=== PATIENT | male | born 1940 | race Caucasian/White ===

== ENCOUNTER → 2020-04-19 | Outpatient (CLI) | payer MEDICARE | LOC: EDSEX 14:00 → CARD 14:00 | PROVIDERS: ATTEND Internal Medicine Cardiovascular Disease | DX: I35.1 Nonrheumatic aortic (valve) insufficiency (principal); I25.10 Atherosclerotic heart disease of native coronary artery without angina pectoris; I25.5 Ischemic cardiomyopathy; I10 Essential (primary) hypertension; Z86.79 Personal history of other diseases of the circulatory system; Z87.891 Personal history of nicotine dependence | CPT/HCPCS: 93306 ==

== ENCOUNTER → 2020-07-09 | Outpatient (CLI) | payer MEDICARE ==
[~2020-07-09] MED LIST: RT-ALBUTEROL SULF 2.5 MG/3 ML PRE-MIX VIAL INH ONE
== END ==
LOC: RT 13:00
PROVIDERS: ATTEND Nurse Practitioner Family
DX: J44.9 Chronic obstructive pulmonary disease, unspecified (principal)
CPT/HCPCS: 94060; 94726; 94729

== ENCOUNTER 2022-09-16 15:22 | Observation (INO) | payer MEDICARE ==
[~2022-09-16] VITALS: Ht 183 cm; Wt 84.6 kg
[2022-09-16] MEDS ORDERED: RT-ALBUTEROL/IPRATROPIUM 3 ML (DUONEB) VIAL INH ONE (16:00)
[2022-09-16 16:12] LABS: POTASSIUM 4.2 MMOL/L (3.6-5.0)
[2022-09-16 16:13] LABS: PROTHROMBIN TIME PATIENT 13.2 SEC (12.2-14.7)
[2022-09-16 16:14] LABS: TOTAL PROTEIN 7.3 GM/DL (6.4-8.2)
[2022-09-16 16:16] LABS: BILIRUBIN,TOTAL 0.4 MG/DL (0.1-1.0)
[2022-09-16 16:17] LABS: BASOPHILS # (AUTO) 0.1 10^3/uL (0.0-0.1); BASOPHILS % (AUTO) 1 % (0-10); EOSINOPHILS # (AUTO) 0.2 10^3/uL (0.0-0.3); EOSINOPHILS % (AUTO) 3 % (0-10); HEMATOCRIT 32 % (40-54); HEMOGLOBIN 9.6 g/dL (13.3-17.7); LYMPHOCYTES # (AUTO) 1.7 X 10^3 (1.0-4.0); LYMPHOCYTES % (AUTO) 24 % (12-44); MEAN CORPUSCULAR HEMOGLOBIN 25 pg (25-34); MEAN CORPUSCULAR HGB CONC 30 g/dL (32-36); MEAN CORPUSCULAR VOLUME 83 fL (80-99); MEAN PLATELET VOLUME 10.5 fL (9.0-12.2); MONOCYTES # (AUTO) 0.6 X 10^3 (0.0-1.0); MONOCYTES % (AUTO) 8 % (0-12); NEUTROPHILS # (AUTO) 4.3 X 10^3 (1.8-7.8); NEUTROPHILS % (AUTO) 64 % (42-75); PLATELET COUNT 379 10^3/uL (130-400); WHITE BLOOD COUNT 6.8 10^3/uL (4.3-11.0)
[2022-09-16 16:18] LABS: CREATININE SERUM 1.08 MG/DL (0.60-1.30)
[2022-09-16 16:21] LABS: MAGNESIUM 2.1 MG/DL (1.6-2.4)
--- NOTE | 2022-09-16 16:29 | ED Respiratory ---
General Chief Complaint: Respiratory Problems Stated Complaint: EKG CHANGES - SOA - BILAT LEG SWELLING Nursing Triage Note: PT TO RM 6 BY WITH COMPLAINT OF SOA ON EXERTION, LOWER EXTREMITY SWELLING. PT WAS SENT OVER BY [facility] FOR SOA, SWELLING, AND EKG CHANGES. Source: patient, family Exam Limitations: no limitations History of Present Illness Date Seen by Provider: Sep 16, 2022 Time Seen by Provider: 15:40 Initial Comments 81-year-old male presents with daughter, sent from the [facility] clinic in [place] with reports of abnormal EKG, shortness of breath, and bilateral lower extremity edema. Patient states that he scheduled an appointment at the clinic because of his bilateral lower leg edema and shortness of air. Daughter states that on he fell and broke his shoulder and has been sitting around [employer]. States the swelling in his lower extremities has increased since the fall, but states they have become more swollen and painful over the last week. States that today swelling is actually improved. Complains of shortness of air with walking short distance, denies shortness of air while sitting. Denies chest pain, denies fever/chills, reports headache but states this is normal for him denies any changes in his headaches. Denies abdominal pain, nausea/vomiting. He has a history of COPD, CHF, open heart surgery, multiple stents. He currently takes carvedilol, tamsulosin, potassium, paroxetine, finasteride, Lasix 40 mg, aspirin 81 mg, Culturelle, cetirizine, pravastatin, Spiriva, Symbicort, albuterol inhaler. Allergies and Home Medications Allergies Coded Allergies: No Known Drug Allergies (Unverified , 07/09/20) Patient Home Medication List Home Medication List Reviewed: Yes Review of Systems Review of Systems Constitutional: see HPI Past Xapjfex-Opgxau-Rmwpuq Hx Patient Social History Tobacco Use?: No Smoking Status: Former Smoker Use of E-Cig and/or Vaping dev: No Substance use?: No Alcohol Use?: No Pt feels they are or have been: No Immunizations Up To Date Influenza Vaccine Up-to-Date: Yes; Up-to-Date First/Initial COVID19 Vaccinat: 2020 Second COVID19 Vaccination Fernie: 2020 Third COVID19 Vaccination Date: 2020 Physical Exam Vital Signs - First Documented 09/16/22 15:27 Pulse 75 Resp 14 B/P (MAP) 113/66 (82) Pulse Ox 98 O2 Delivery Room Air Capillary Refill : Less Than 3 Seconds Height: '" Weight: lbs. oz. kg; 23.00 BMI Method: General Appearance: WD/WN, no apparent distress Neck: supple, normal inspection Respiratory: no respiratory distress, no accessory muscle use, decreased breath sounds, wheezing (Expiratory wheezing bilateral lower lobes) Cardiovascular: regular rate, rhythm Extremities: normal range of motion, pedal edema, swelling (non-pitting edema) Neurologic/Psychiatric: alert, normal mood/affect, oriented x 3 Skin: normal color, warm/dry Progress/Results/Core Measures Suspected Sepsis SIRS Temperature: Pulse: 75 Respiratory Rate: 14 Laboratory Tests 09/16/22 15:35: White Blood Count 6.8 Blood Pressure 113 /66 Mean: 82 Laboratory Tests 09/16/22 15:35: Creatinine 1.08, INR Comment 1.0, Platelet Count 379, Total Bilirubin 0.4 Results/Orders Lab Results Laboratory Tests Test 09/16/22 15:35 09/16/22 18:39 Range/Units White Blood Count 6.8 4.3-11.0 10^3/uL Red Blood Count 3.87 L 4.30-5.52 10^6/uL Hemoglobin 9.6 L 13.3-17.7 g/dL Hematocrit 32 L 40-54 % Mean Corpuscular Volume 83 80-99 fL Mean Corpuscular Hemoglobin 25 25-34 pg Mean Corpuscular Hemoglobin Concent 30 L 32-36 g/dL Red Cell Distribution Width 16.6 H 10.0-14.5 % Platelet Count 379 130-400 10^3/uL Mean Platelet Volume 10.5 9.0-12.2 fL Immature Granulocyte % (Auto) 0 % Neutrophils (%) (Auto) 64 42-75 % Lymphocytes (%) (Auto) 24 12-44 % Monocytes (%) (Auto) 8 0-12 % Eosinophils (%) (Auto) 3 0-10 % Basophils (%) (Auto) 1 0-10 % Neutrophils # (Auto) 4.3 1.8-7.8 X 10^3 Lymphocytes # (Auto) 1.7 1.0-4.0 X 10^3 Monocytes # (Auto) 0.6 0.0-1.0 X 10^3 Eosinophils # (Auto) 0.2 0.0-0.3 10^3/uL Basophils # (Auto) 0.1 0.0-0.1 10^3/uL Immature Granulocyte # (Auto) 0.0 0.0-0.1 10^3/uL Prothrombin Time 13.2 12.2-14.7 SEC INR Comment 1.0 0.8-1.4 Activated Partial Thromboplast Time 29 24-35 SEC D-Dimer 2.34 H 0.00-0.49 UG/ML Sodium Level 133 L 135-145 MMOL/L Potassium Level 4.2 3.6-5.0 MMOL/L Chloride Level 99 98-107 MMOL/L Carbon Dioxide Level 22 21-32 MMOL/L Anion Gap 12 5-14 MMOL/L Blood Urea Nitrogen 20 H 7-18 MG/DL Creatinine 1.08 0.60-1.30 MG/DL Estimat Glomerular Filtration Rate 69 BUN/Creatinine Ratio 19 Glucose Level 98 70-105 MG/DL Calcium Level 9.0 8.5-10.1 MG/DL Corrected Calcium 9.0 8.5-10.1 MG/DL Magnesium Level 2.1 1.6-2.4 MG/DL Total Bilirubin 0.4 0.1-1.0 MG/DL Aspartate Amino Transf (AST/SGOT) 18 5-34 U/L Alanine Aminotransferase (ALT/SGPT) 15 0-55 U/L Alkaline Phosphatase 136 40-136 U/L Myoglobin 70.5 10.0-92.0 NG/ML Troponin I 0.046 H 0.032 H <0.028 NG/ML B-Type Natriuretic Peptide 50.3 <100.0 PG/ML Total Protein 7.3 6.4-8.2 GM/DL Albumin 4.0 3.2-4.5 GM/DL My Orders Orders - LISA KIRK APRN Ekg Tracing (09/16/22 15:37) Cbc With Automated Diff (09/16/22 15:59) Magnesium (09/16/22 15:59) Chest 1 View, Ap/Pa Only (09/16/22 15:59) Comprehensive Metabolic Panel (09/16/22 15:59) Myoglobin Serum (09/16/22 15:59) Protime With Inr (09/16/22 15:59) Partial Thromboplastin Time (09/16/22 15:59) Monitor-Rhythm Ecg Trace Only (09/16/22 15:59) Ed Iv/Invasive Line Start (09/16/22 15:59) Bnp Kelly (09/16/22 15:59) Fibrin Degradation Products (09/16/22 15:59) Troponin I Summers (09/16/22 15:59) Albuterol/Ipra Inhalation Soln (Duoneb I (09/16/22 16:00) Svn Small Volume Nebulizer (09/16/22 15:59) Ct Angio Chest W (R/O Pe) (09/16/22 16:57) Iohexol Injection (Omnipaque 350 Mg/Ml 1 (09/16/22 17:15) Received Contrast (Hold Metformin- Contr (09/16/22 17:15) Ns (Ivpb) (Sodium Chloride 0.9% Ivpb Bag (09/16/22 17:15) Methylprednisolone Sod Succ (Solu-Medrol (09/16/22 17:45) Troponin I Kelly (09/16/22 17:43) Ekg Tracing (09/16/22 18:30) Fentanyl Inj (Sublimaze Injection) (09/16/22 19:00) Ed Admission (Communication) (09/16/22 19:47) Medications Given in ED Current Medications Medications Dose Ordered Sig/Sandra Route Start Time Stop Time Status Last Admin Dose Admin Albuterol/ Ipratropium 3 ml ONCE ONCE INH 09/16/22 16:00 09/16/22 16:01 DC 09/16/22 16:32 3 ML Fentanyl Citrate 50 mcg ONCE ONCE IVP 09/16/22 19:00 09/16/22 19:01 DC 09/16/22 19:02 50 MCG Iohexol 100 ml ONCE ONCE IV 09/16/22 17:15 09/16/22 17:16 DC 09/16/22 17:02 72 ML Methylprednisolone Sodium Succinate 125 mg ONCE ONCE IVP 09/16/22 17:45 09/16/22 17:46 DC 09/16/22 17:56 125 MG Sodium Chloride 100 ml ONCE ONCE IV 09/16/22 17:15 09/16/22 17:16 DC 09/16/22 17:02 80 ML Vital Signs/I&O 09/16/22 15:27 Pulse 75 Resp 14 B/P (MAP) 113/66 (82) Pulse Ox 98 O2 Delivery Room Air Capillary Refill : Less Than 3 Seconds Blood Pressure Mean: 82 Progress Note #1: Time: 16:00 Progress Note Patient seen and evaluated, resting comfortably on the bed, no acute distress, well-appearing. Based on exam and symptoms, differential diagnosis includes CHF exacerbation, COPD exacerbation, PE, pneumonia, WA, pleural effusion. Work-up initiated for shortness of air, CBC, CMP, BNP, troponin, magnesium level, chest x-ray, EKG. Progress Note #2: Time: 17:[address] angio chest ordered and completed for elevated D-dimer, negative for PE. Chest x-ray and labs reviewed. CBC revealed normocytic anemia, hemoglobin 9.6, hematocrit 32. Patient and daughter deny history of known anemia. Denies coffee-ground emesis, denies black tarry stools. CMP grossly normal, sodium slightly low at 133, BUN slightly elevated at 20. Coags normal. Troponin elevated at 0.046, will repeat a 3-hour troponin at 1830. BNP 50. chest x-ray revealed no cardiopulmonary process. Discussed results with patient and daughter, informed that we would repeat the troponin 3 hours after the first draw. Informed patient that the shortness of breath may be due to his COPD, and informed him that we would give him a dose of steroids here and if he is discharged will be sent home on prednisone. Inform patient that we will call his balance staff inspector after the second troponin. Progress Note #3: Time: 18:10 Progress Note Fecal occult blood completed, negative. Progress Note #4: Time: 19:13 Progress Note Repeat troponin decreased but still elevated. Consulted with Dr. Rodríguez who wants him admitted. Discussed admission with patient, patient and family agreeable to admission. ECG Initial ECG Impression Date: Sep 16, 2022 Initial ECG Impression Time: 15:40 Initial ECG Rhythm: Normal Sinus Initial ECG Intervals: Normal Initial ECG Impression: Normal Initial ECG Comparisson: No Previous ECG Available Comment Insignificant Q waves noted in II, III, and aVF, no ST elevation or T wave inversion in these leads. T wave inversion in lead I, aVL. EKG : EKG Time: 18:41 Rate: 83 Rhythm: Normal Sinus Intervals: Normal ECG Comparisson: Changed ECG Impression: Nonspecific Changes Comment Q waves in II and aVF have decreased, lead III continues to have similar Q waves. No ST elevation or T wave inversion in these leads. Diagnostic Imaging Diagonstic Imaging: Xray Plain Films/CT/US/NM/MRI: chest Comments [facility] [place], [place] NAME: RITA COCHRAN [facility] REC#: [id number] PT STATUS: REG ER : 1940 PHYSICIAN: LISA KIRK APRN ADMIT DATE: 09/16/22/ER Draft Date of Exam:09/16/22 CHEST 1 VIEW, AP/PA ONLY INDICATION: Dyspnea and chest pain. AP view of the chest is obtained. COMPARISON: None FINDINGS: Surgical findings are seen in the mediastinum with presumed coronary artery stent. Lungs are clear. There is no pneumothorax, consolidation or pleural fluid. Mild degenerative findings are present in the left shoulder. Shoulder is incompletely evaluated on this exam. IMPRESSION: No definite acute abnormalities identified. There is probable degenerative change and mild irregularity in the proximal left humerus. Correlation to possible pain at this site would be of use. Dictated on workstation # [id number] Dict: 09/16/22 1642 Trans: 09/16/22 1644 [facility] [id number] Interpreted by: VADIM MAE MD Electronically signed by: Departure Communication (Admissions) Time/Spoke to Admitting Phy: 19:[address] Castro for admission. Time/Spoke to Consulting Phy: 19:[address] Rodríguez. Impression Primary Impression: Elevated troponin Additional Impressions: COPD with acute exacerbation CHF (congestive heart failure) Disposition: ADMITTED INPATIENT Condition: Stable Admissions Decision to Admit Reason: Admit from ER (General) Decision to Admit/Date: Sep 16, 2022 Time/Decision to Admit Time: 19:33 Departure-Patient Inst. Referrals: [facility] ([place]) Primary Care Physician LISA KIRK APRN Sep 16, 2022 16:29
--- NOTE | 2022-09-16 16:45 | Diagnostic Imaging Report ---
INDICATION: Dyspnea and chest pain. AP view of the chest is obtained. COMPARISON: None FINDINGS: Surgical findings are seen in the mediastinum with presumed coronary artery stent. Lungs are clear. There is no pneumothorax, consolidation or pleural fluid. Mild degenerative findings are present in the left shoulder. Shoulder is incompletely evaluated on this exam. IMPRESSION: No definite acute abnormalities identified. There is probable degenerative change and mild irregularity in the proximal left humerus. Correlation to possible pain at this site would be of use. Dictated by: Dictated on workstation # [id number]
[2022-09-16] MEDS ORDERED: HOLD METFORMIN - RECEIVED CONTRAST 20 ML VIAL IV SCH (17:15)
[2022-09-16] MEDS ORDERED: NS 100 ML (IVPB) BAG IV ONE (17:15)
[2022-09-16] MEDS ORDERED: IOHEXOL 350 MG/ML 100 ML (OMNIPAQUE 350) VIAL IV ONE (17:15)
--- NOTE | 2022-09-16 17:27 | Diagnostic Imaging Report ---
INDICATION: Shortness of breath on exertion, lower extremity swelling. TECHNIQUE: CTA chest obtained with IV contrast bolus and axial slices and MIP reconstructions. Dose-reduction protocol was used. COMPARISON: There is no prior study for comparison. FINDINGS: The pulmonary parenchymal vessels are well opacified with no CT evidence of pulmonary emboli. The thoracic aorta shows no sign of dissection or aneurysm. There is mild aortic plaquing. Great vessel origins are patent and without stenosis. There is no mediastinal or hilar adenopathy. A prominent hiatal hernia is noted. There are no enlarged axillary nodes or chest wall lesions. There is no pleural or pericardial fluid. Patient has had previous sternotomy. Visualized portions of the upper abdomen were unremarkable. Lung windows demonstrated some biapical scarring. There is no consolidation. There is some right basilar scarring. IMPRESSION: No CT evidence of pulmonary emboli or acute aortic pathology. Evidence of previous sternotomy. No pleural fluid. There are some areas of scarring in both apices and in the right lung base, but no ant consolidation. Dictated by: Dictated on workstation # [id number]
[2022-09-16] MEDS ORDERED: methylPREDNISolone 125 MG (Solu-MEDROL) VIAL IVP ONE (17:45)
[2022-09-16] MEDS ORDERED: fentaNYL INJ 100 MCG/2 ML AMP IVP ONE (19:00)
[2022-09-16 20:15] VITALS: BP 135/60
[2022-09-16] MEDS ORDERED: PATIENT MAY USE OWN MEDS, ALL MC SCH (20:30)
[2022-09-16 20:42] VITALS: BP 113/66
[2022-09-16] MEDS ORDERED: RT-ALBUTEROL/IPRATROPIUM 3 ML (DUONEB) VIAL INH PRN (21:00)
[2022-09-16] MEDS: RT-ALBUTEROL/IPRATROPIUM 3 ML (DUONEB) VIAL INH SCH (21:39)
[2022-09-16] MEDS ORDERED: CATHETER FLUSH 10 ML SYR IVP PRN (22:00)
[2022-09-16] MEDS ORDERED: ONDANSETRON 4 MG/2 ML (SDV) Z0FRAN IV PRN (22:00)
[2022-09-16 23:24] VITALS: BP 123/55
[2022-09-16] MEDS: fentaNYL INJ 100 MCG/2 ML AMP IV PRN (23:29)
[2022-09-16] MEDS: CATHETER FLUSH 10 ML SYR IVP SCH (23:29)
[2022-09-17 04:28] VITALS: BP 122/64
[2022-09-17] MEDS: CATHETER FLUSH 10 ML SYR IVP SCH ×3 (04:39→20:30)
[2022-09-17] MEDS: fentaNYL INJ 100 MCG/2 ML AMP IV PRN ×2 (04:46→09:31)
[2022-09-17 05:52] LABS: BASOPHILS % (AUTO) 0 % (0-10); EOSINOPHILS % (AUTO) 0 % (0-10); HEMATOCRIT 32 % (40-54); HEMOGLOBIN 9.7 g/dL (13.3-17.7); LYMPHOCYTES # (AUTO) 0.7 10^3/uL (1.0-4.0); LYMPHOCYTES % (AUTO) 16 % (12-44); MEAN CORPUSCULAR HEMOGLOBIN 25 pg (25-34); MEAN CORPUSCULAR HGB CONC 31 g/dL (32-36); MEAN CORPUSCULAR VOLUME 81 fL (80-99); MEAN PLATELET VOLUME 10.7 fL (9.0-12.2); MONOCYTES % (AUTO) 1 % (0-12); NEUTROPHILS # (AUTO) 3.5 10^3/uL (1.8-7.8); NEUTROPHILS % (AUTO) 83 % (42-75); PLATELET COUNT 395 10^3/uL (130-400); WHITE BLOOD COUNT 4.3 10^3/uL (4.3-11.0)
[2022-09-17 06:02] LABS: CREATININE SERUM 1.01 MG/DL (0.60-1.30)
[2022-09-17 07:53] VITALS: BP 129/70
[2022-09-17] MEDS: RT-ALBUTEROL/IPRATROPIUM 3 ML (DUONEB) VIAL INH SCH ×2 (10:19→21:58)
--- NOTE | 2022-09-17 10:59 | Consultation-Cardiology ---
HPI-Cardiology Cardiology Consultation: Date of Consultation 09/17/22 Time Seen by a Provider: 10:30 Date of Admission 09-16-22 Attending Physician Selina,[facility] Physician Admitting Physician Admitting Physician: Janny Castro MD Attending Physician: Janny Csatro MD Consulting Physician Pari Rodríguez MD HPI: Chief Complaint: Progressive dyspnea Mr. Bliss is an 81 yr old male admitted to [facility] from the ED with c/o increasing LEACH. He reports he went to [facility] in [place] yesterday for a "lung test". He states he was told d/t his SOB he needed to come to the ED. He reports he fell a week ago, non-syncopal fall, and fractured his left shoulder which is in a sling. He states he has poor balance, which is chronic. He reports intermittent bilat LE swelling which is least in the morning and worse at the end of the day and with elevation. He reports he has COPD and has been seeing the "lung doctor" at [facility]. He denies any c/o palpitations. He reports no dyspnea this morning, but has only been up to shower. Review of Systems-Cardiology Review of Systems Constitutional: No chills, No fever; lightheadedness Eyes: No vision change Ears/Nose/Throat: No epistaxis, No recent hearing loss Respiratory: As described under HPI Cardiovascular: As described under HPI Gastrointestinal: No constipation, No diarrhea, No nausea, No vomiting Genitourinary: No dysuria, No hematuria Musculoskeletal: As describe under HPI Skin: No rash on exposed areas, No ulcerations on exposed areas Psychiatric/Neurological: No anxiety, No depression, No seizure, No focal weakness, No syncope Hematologic: No bleeding abnormalities RDA-Shurle-Filpwn Hx Patient Social History Smoking Status: Former Smoker Have you traveled recently?: No Alcohol Use?: No Pt feels they are or have been: No Tobacco type used: Cigarettes Immunizations Up To Date Date of Influenza Vaccine: May 30, 2022 Past Medical History PMH As described under Assessment. Family Medical History Family Medical History: No reported family h/o CAD. Allergies and Home Medications Allergies Coded Allergies: No Known Drug Allergies (Unverified , 07/09/20) Patient Home Medication List Acetaminophen (Tylenol Extra Strength) 500 Mg Tablet, 1,000 MG PO Q8H PRN for PAIN-MILD (1-4), (Reported) Entered as Reported by: DEE DEE LEE on 09/17/221602 Last Action: Reviewed Albuterol Sulfate (Ventolin Hfa) 1 Puff Puff, 2 PUFF INH Q4H PRN for SHORTNESS OF BREATH, (Reported) Entered as Reported by: DEE DEE LEE on 09/17/221602 Last Action: Reviewed Aspirin (Aspirin EC) 81 Mg Tablet.dr, 81 MG PO DAILY, (Reported) Entered as Reported by: DEE DEE LEE on 09/17/221602 Last Action: Reviewed Budesonide/Formoterol Fumarate (Symbicort 160-4.5 Mcg Inhaler) 160 Mcg-4.5 Mcg/Actuation Hfa.aer.ad, 2 PUFF IH DAILY, (Reported) Entered as Reported by: DEE DEE LEE on 09/17/221602 Last Action: Reviewed Carvedilol (Carvedilol) 3.125 Mg Tablet, 3.125 MG PO BID, (Reported) Entered as Reported by: DEE DEE LEE on 09/17/221602 Last Action: Reviewed Cetirizine HCl (Cetirizine HCl) 10 Mg Tablet, 10 MG PO 1700, (Reported) Entered as Reported by: DEE DEE LEE on 09/17/221602 Last Action: Reviewed Finasteride (Finasteride) 5 Mg Tablet, 5 MG PO DAILY, (Reported) Entered as Reported by: DEE DEE LEE on 09/17/221602 Last Action: Reviewed Furosemide (Furosemide) 40 Mg Tablet, 40 MG PO DAILY, (Reported) Entered as Reported by: DEE DEE LEE on 09/17/221602 Last Action: Reviewed Hydrocodone/Acetaminophen (Hydrocodone-Acetamin 5-325 mg) 5 Mg-325 Mg Tablet, 1 EA PO Q6H PRN for PAIN-MODERATE (5-7), (Reported) Entered as Reported by: DEE DEE LEE on 09/17/221603 Last Action: Reviewed Lactobacillus Rhamnosus GG (Culturelle) 10 Billion Cell Capsule, 1 EACH PO DAILY, (Reported) Entered as Reported by: DEE DEE LEE on 09/17/221602 Last Action: Reviewed Magnesium Hydroxide (Milk of Magnesia) 400 Mg/5 Ml Oral.susp, 30 ML PO BID PRN for CONSTIPATION-7TH LINE, (Reported) Entered as Reported by: EDE DEE LEE on 09/17/221602 Last Action: Reviewed Pantoprazole Sodium (Pantoprazole Sodium) 40 Mg Tablet.dr, 40 MG PO DAILY, (Reported) Entered as Reported by: DEE DEE LEE on 09/17/221602 Last Action: Reviewed Paroxetine HCl (Paroxetine HCl) 10 Mg Tablet, 10 MG PO DAILY, (Reported) Entered as Reported by: DEE DEE LEE on 09/17/221602 Last Action: Reviewed Potassium Chloride (Klor-Con 10) 10 Meq Tablet.er, 10 MEQ PO DAILY, (Reported) Entered as Reported by: DEE DEE LEE on 09/17/221602 Last Action: Reviewed Pravastatin Sodium (Pravastatin Sodium) 40 Mg Tablet, 40 MG PO 1700, (Reported) Entered as Reported by: DEE DEE LEE on 09/17/221602 Last Action: Reviewed Tamsulosin HCl (Flomax) 0.4 Mg Cap, 0.8 MG PO DAILY, (Reported) Entered as Reported by: DEE DEE LEE on 09/17/221602 Last Action: Reviewed Tiotropium [place] (Spiriva) 18 Mcg Aerp, 1 PUFF IH DAILY, (Reported) Entered as Reported by: DEE DEE LEE on 09/17/221602 Last Action: Reviewed Physical Exam-Cardiology Physical Exam Vital Signs/I&O 09/17/22 09/17/22 09/17/22 09/17/22 07:00 07:53 08:00 10:19 Temp 36.8 Pulse 99 99 Resp 18 B/P (MAP) 129/70 (89) Pulse Ox 95 92 O2 Delivery Room Air Room Air Room Air 09/17/22 09/17/22 09/17/22 11:42 12:45 15:09 Temp 36.6 36.9 Pulse 93 104 96 Resp 18 18 B/P (MAP) 130/63 (85) 126/66 (86) Pulse Ox 98 96 O2 Delivery Room Air Room Air 09/17/22 00:00 Intake Total 250 ml Balance 250 ml Capillary Refill : Less Than 3 Seconds Constitutional: AAO x 3, well-developed, well-nourished HEENT: PERRL, hearing is well preserved, oral hygience is good Neck: No carotid bruit; carotid pulses are 2 + bilaterally Respiratory: No accessory muscle use, No respiratory distress; chest expansion is symmetric, chest is bilaterally symmetric, rhonchi (scattered) Cardiovascular: regular rate-rhythm; No JVD; S1 and S2 Gastrointestinal: No tender; soft, round, audible bowel sounds Extremities: no lower extremity edema bilateral Neurologic/Psychiatric: grossly intact (moves all extremities; sling to left arm - not manipulated d/t recent fracture) Skin: No rash on exposed areas, No ulcerations on exposed areas Data Review Labs Laboratory Tests 09/16/22 18:39: Troponin I 0.032H 09/17/22 00:33: Troponin I 0.051H 09/17/22 05:09: Troponin I 0.041H, White Blood Count 4.3, Red Blood Count 3.88L, Hemoglobin 9.7L , Hematocrit 32L, Mean Corpuscular Volume 81, Mean Corpuscular Hemoglobin 25, Mean Corpuscular Hemoglobin Concent 31L, Red Cell Distribution Width 16.5H, Platelet Count 395, Mean Platelet Volume 10.7, Immature Granulocyte % (Auto) 1, Neutrophils (%) (Auto) 83H, Lymphocytes (%) (Auto) 16, Monocytes (%) (Auto) 1, Eosinophils (%) (Auto) 0, Basophils (%) (Auto) 0, Neutrophils # (Auto) 3.5, Lymphocytes # (Auto) 0.7L, Monocytes # (Auto) 0.0, Eosinophils # (Auto) 0.0, Basophils # (Auto) 0.0, Immature Granulocyte # (Auto) 0.0, Sodium Level 134L, Potassium Level 4.0, Chloride Level 102, Carbon Dioxide Level 20L, Anion Gap 12, Blood Urea Nitrogen 22H, Creatinine 1.01, Estimat Glomerular Filtration Rate 75, BUN/Creatinine Ratio 22, Glucose Level 159H, Calcium Level 9.0 Radiology NAME: RITA BLISS [facility] REC#: [id number] PT STATUS: REG ER : 1940 PHYSICIAN: LISA KIRK APRN ADMIT DATE: 09/16/22/ER Signed Date of Exam:09/16/22 CHEST 1 VIEW, AP/PA ONLY INDICATION: Dyspnea and chest pain. AP view of the chest is obtained. COMPARISON: None FINDINGS: Surgical findings are seen in the mediastinum with presumed coronary artery stent. Lungs are clear. There is no pneumothorax, consolidation or pleural fluid. Mild degenerative findings are present in the left shoulder. Shoulder is incompletely evaluated on this exam. IMPRESSION: No definite acute abnormalities identified. There is probable degenerative change and mild irregularity in the proximal left humerus. Correlation to possible pain at this site would be of use. Dictated by: Dictated on workstation # [id number] Dict: 09/16/22 1642 Trans: 09/16/221727 CVB [id number] Interpreted by: VADIM MAE MD Electronically signed by: VADIM MAE MD 09/16/221727 NAME: RITA BLISS [facility] REC#: [id number] PT STATUS: REG ER : 1940 PHYSICIAN: LISA KIRK APRN ADMIT DATE: 09/16/22/ER Signed Date of Exam:09/16/22 CT ANGIO CHEST W (R/O PE) INDICATION: Shortness of breath on exertion, lower extremity swelling. TECHNIQUE: CTA chest obtained with IV contrast bolus and axial slices and MIP reconstructions. Dose-reduction protocol was used. COMPARISON: There is no prior study for comparison. FINDINGS: The pulmonary parenchymal vessels are well opacified with no CT evidence of pulmonary emboli. The thoracic aorta shows no sign of dissection or aneurysm. There is mild aortic plaquing. Great vessel origins are patent and without stenosis. There is no mediastinal or hilar adenopathy. A prominent hiatal hernia is noted. There are no enlarged axillary nodes or chest wall lesions. There is no pleural or pericardial fluid. Patient has had previous sternotomy. Visualized portions of the upper abdomen were unremarkable. Lung windows demonstrated some biapical scarring. There is no consolidation. There is some right basilar scarring. IMPRESSION: No CT evidence of pulmonary emboli or acute aortic pathology. Evidence of previous sternotomy. No pleural fluid. There are some areas of scarring in both apices and in the right lung base, but no ant consolidation. 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 ECG of 04/11/20: NSR, prior anteroseptal NC Discussion and Recomendations Progressive dyspnea - possibly secondary to acute on chronic exacerbation of COPD No clinical evidence of CHF - Echocardiogram today HTN - resume home medications Minimially elevated troponin - likely Type 2 NC secondary to transient hypoxia - no c/o CP Monitor lab Replace electrolytes as indicated He wishes to go home has he is the primary care-health sanitarian to his We would like to thank medical services for this consult Further recs will be based on his hospital course JOHN EDGE Sep 17, 2022 10:59
[2022-09-17] MEDS ORDERED: ASPIRIN 81 MG CHEW (CHILDREN'S ASA) PO NR (11:20)
[2022-09-17 11:42] VITALS: BP 130/63
[2022-09-17] MEDS ORDERED: REGADENOSON 0.4 MG/5 ML SYR (LEXISCAN) IV ONE (13:00)
[2022-09-17 15:09] VITALS: BP 126/66
--- NOTE | 2022-09-17 15:18 | Consultation-Cardiology ---
HPI-Cardiology Cardiology Consultation: Date of Consultation 09/17/22 Time Seen by a Provider: 12:40 Date of Admission Attending Physician No,Local Physician Admitting Physician Admitting Physician: Janny Castro MD Attending Physician: Janny Castro MD Consulting Physician DIANNA HWANG MD, MA, FACP, FACC, [facility], CCDS HPI: Chief Complaint: Progressive dyspnea Mr. Bliss is an 81 yr old male admitted to [facility] from the ED with c/o increasing LEACH. He reports he went to [facility] in [place] yesterday for a "lung test". He states he was told d/t his SOB he needed to come to the ED. He reports he fell a week ago, non-syncopal fall, and fractured his left shoulder which is in a sling. He states he has poor balance, which is chronic. He reports intermittent bilat LE swelling which is least in the morning and worse at the end of the day and with elevation. He reports he has COPD and has been seeing the "lung doctor" at [facility]. He denies any c/o palpitations. He reports no dyspnea this morning, but has only been up to shower. Review of Systems-Cardiology Review of Systems Constitutional: No chills, No fever; lightheadedness Eyes: No vision change Ears/Nose/Throat: No epistaxis, No recent hearing loss Respiratory: As described under HPI Cardiovascular: As described under HPI Gastrointestinal: No constipation, No diarrhea, No nausea, No vomiting Genitourinary: No dysuria, No hematuria Musculoskeletal: As describe under HPI Skin: No rash on exposed areas, No ulcerations on exposed areas Psychiatric/Neurological: No anxiety, No depression, No seizure, No focal weakness, No syncope Hematologic: No bleeding abnormalities ZEP-Jlrlkw-Oauavv Hx Patient Social History Smoking Status: Former Smoker Have you traveled recently?: No Alcohol Use?: No Pt feels they are or have been: No Tobacco type used: Cigarettes Immunizations Up To Date Date of Influenza Vaccine: May 30, 2022 Past Medical History PMH As described under Assessment. Family Medical History Family Medical History: No reported family h/o CAD. Allergies and Home Medications Allergies Coded Allergies: No Known Drug Allergies (Unverified , 07/09/20) Patient Home Medication List Home Medication List Reviewed: Yes Physical Exam-Cardiology Physical Exam Vital Signs/I&O 09/17/22 09/17/22 09/17/22 09/17/22 04:28 07:00 07:53 08:00 Temp 36.2 36.8 Pulse 108 99 99 Resp 18 18 B/P (MAP) 122/64 (83) 129/70 (89) Pulse Ox 95 95 O2 Delivery Room Air Room Air Room Air 09/17/22 09/17/22 09/17/22 09/17/22 10:19 11:42 12:45 15:09 Temp 36.6 36.9 Pulse 93 104 96 Resp 18 18 B/P (MAP) 130/63 (85) 126/66 (86) Pulse Ox 92 98 96 O2 Delivery Room Air Room Air Room Air 09/17/22 00:00 Intake Total 250 ml Balance 250 ml Capillary Refill : Less Than 3 Seconds Constitutional: AAO x 3, well-developed, well-nourished HEENT: PERRL, hearing is well preserved, oral hygience is good Neck: No carotid bruit; carotid pulses are 2 + bilaterally Respiratory: No accessory muscle use, No respiratory distress; chest expansion is symmetric, chest is bilaterally symmetric, rhonchi (scattered) Cardiovascular: regular rate-rhythm; No JVD; S1 and S2 Gastrointestinal: No tender; soft, round, audible bowel sounds Extremities: no lower extremity edema bilateral Neurologic/Psychiatric: grossly intact (moves all extremities; sling to left arm - not manipulated d/t recent fracture) Skin: No rash on exposed areas, No ulcerations on exposed areas Data Review Labs Laboratory Tests 09/16/22 15:35: White Blood Count 6.8, Red Blood Count 3.87L, Hemoglobin 9.6L, Hematocrit 32L, Mean Corpuscular Volume 83, Mean Corpuscular Hemoglobin 25, Mean Corpuscular Hemoglobin Concent 30L, Red Cell Distribution Width 16.6H, Platelet Count 379, Mean Platelet Volume 10.5, Immature Granulocyte % (Auto) 0, Neutrophils (%) (Au to) 64, Lymphocytes (%) (Auto) 24, Monocytes (%) (Auto) 8, Eosinophils (%) (Auto) 3, Basophils (%) (Auto) 1, Neutrophils # (Auto) 4.3, Lymphocytes # (Auto) 1.7, Monocytes # (Auto) 0.6, Eosinophils # (Auto) 0.2, Basophils # (Auto) 0.1, Immature Granulocyte # (Auto) 0.0, Prothrombin Time 13.2, INR Comment 1.0, Activated Partial Thromboplast Time 29, D-Dimer 2.34H, Sodium Level 133L, Potassium Level 4.2, Chloride Level 99, Carbon Dioxide Level 22, Anion Gap 12, Blood Urea Nitrogen 20H, Creatinine 1.08, Estimat Glomerular Filtration Rate 69, BUN/Creatinine Ratio 19, Glucose Level 98, Calcium Level 9.0, Corrected Calcium 9.0, Magnesium Level 2.1, Total Bilirubin 0.4, Aspartate Amino Transf (AST/SGOT) 18, Alanine Aminotransferase (ALT/SGPT) 15, Alkaline Phosphatase 136, Myoglobin 70.5, Troponin I 0.046H, B-Type Natriuretic Peptide 50.3, Total Protein 7.3, Albumin 4.0 09/16/22 18:39: Troponin I 0.032H 09/17/22 00:33: Troponin I 0.051H 09/17/22 05:09: White Blood Count 4.3, Red Blood Count 3.88L, Hemoglobin 9.7L, Hematocrit 32L, Mean Corpuscular Volume 81, Mean Corpuscular Hemoglobin 25, Mean Corpuscular Hemoglobin Concent 31L, Red Cell Distribution Width 16.5H, Platelet Count 395, Mean Platelet Volume 10.7, Immature Granulocyte % (Auto) 1, Neutrophils (%) (Auto) 83H, Lymphocytes (%) (Auto) 16, Monocytes (%) (Auto) 1, Eosinophils (%) (Auto) 0, Basophils (%) (Auto) 0, Neutrophils # (Auto) 3.5, Lymphocytes # (Auto) 0.7L, Monocytes # (Auto) 0.0, Eosinophils # (Auto) 0.0, Basophils # (Auto) 0.0, Immature Granulocyte # (Auto) 0.0, Sodium Level 134L, Potassium Level 4.0, Chloride Level 102, Carbon Dioxide Level 20L, Anion Gap 12, Blood Urea Nitrogen 22H, Creatinine 1.01, Estimat Glomerular Filtration Rate 75, BUN/Creatinine Ratio 22, Glucose Level 159H, Calcium Level 9.0, Troponin I 0.041H A/P-Cardiology Assessment/Admission Diagnosis Progressive LEACH - possibly secondary to acute on chronic exacerbation of COPD Minimal troponin elevation - has been relatively flat - 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
[2022-09-17] MEDS ORDERED: MILK OF MAGNESIA 400 MG/5 ML 30 ML UDC PO PRN (15:45)
[2022-09-17] MEDS: ACETAMINOPHEN 325 MG TABLET PO PRN (15:58)
[2022-09-17] MEDS ORDERED: PANT40TA52 PO (16:03)
[2022-09-17] MEDS ORDERED: FURO40TA4 PO (16:03)
[2022-09-17] MEDS ORDERED: CARV3.122 PO (16:03)
[2022-09-17] MEDS ORDERED: FINA5TAB6 PO (16:03)
[2022-09-17] MEDS ORDERED: RT-ALBUINH INH (16:03)
[2022-09-17] MEDS ORDERED: ASPI-1238 PO (16:03)
[2022-09-17] MEDS ORDERED: BUDE10.2 IH (16:03)
[2022-09-17] MEDS ORDERED: ACET-2267 PO (16:03)
[2022-09-17] MEDS ORDERED: PRAV40TA2 PO (16:03)
[2022-09-17] MEDS ORDERED: POTA-160 PO (16:03)
[2022-09-17] MEDS ORDERED: CETI10TA17 PO (16:03)
[2022-09-17] MEDS ORDERED: PARO10TA3 PO (16:03)
[2022-09-17] MEDS ORDERED: TMSL.4C PO (16:03)
[2022-09-17] MEDS ORDERED: TIOT18CA2 IH (16:03)
[2022-09-17] MEDS ORDERED: LACT1CAP39 PO (16:03)
[2022-09-17] MEDS ORDERED: MAGN400O7 PO (16:03)
[2022-09-17] MEDS ORDERED: ACHD5005 PO (16:04)
[2022-09-17] MEDS ORDERED: HYDROcodone/APAP 5 MG/325 MG (LORTAB) TAB PO PRN (17:00)
--- NOTE | 2022-09-17 17:04 | History & Physical ---
HPI History of Present Illness: 81 yo M that presented with worsening shortness of breath and decreased exercise tolerance. States that he was being seen in the [facility] by Broderick Welch and was sent to the ER from clinic due to shortness of breath after lung testing. Patient states that he has not been feeling well since breaking his hip about 1 year ago. 1 week ago he had a fall and fractures his left shoulder. States that he lost his balance and fell. Denies missing any medications. States that he noticed the swelling in his LE about 2-3 days ago. Denies any sick contacts Source: patient Exam Limitations: no limitations Date seen by provider: Sep 17, 2022 Time Seen by Provider: 11:45 Attending Physician No,Local Physician PCP Admitting Physician: Jerome Mata MD Attending Physician: Jerome Mata MD Consult Date of Admission Sep 16, 2022 at 19:47 Home Medications Home Medications Reviewed patient Home Medication Reconciliation performed by pharmacy medication reconciliations water treatment technician and/or nursing. Patients Allergies have been reviewed. Allergies Coded Allergies: No Known Drug Allergies (Unverified , 07/09/20) PEH-Qhiwhr-Lgjczq Hx Patient Social History Smoking Status: Former Smoker Alcohol Use?: No Tobacco type used: Cigarettes Have you traveled recently?: No Immunizations Up To Date Influenza Vaccine Up-to-Date: Yes; Up-to-Date First/Initial COVID19 Vaccinat: 2020 Second COVID19 Vaccination Fernie: 2020 Third COVID19 Vaccination Date: 2020 Past Medical History COPD CAD s/p CABG BPH HLD Family Medical History Significant Family History: No Pertinent Family Hx Review of Systems (CHC) Constitutional: No dizziness, No fever; malaise, weakness EENTM: no symptoms reported; No mouth pain, No nose congestion, No nose pain Respiratory: No cough; dyspnea on exertion; No orthopnea; short of breath Cardiovascular: No chest pain; edema; No palpitations Gastrointestinal: no symptoms reported; No abdominal pain, No constipation, No diarrhea, No nausea, No vomiting Genitourinary: No dysuria; frequency; No hematuria Musculoskeletal: joint pain, muscle pain Skin: no symptoms reported Psychiatric/Neurological: Weakness Reviewed Test Results Reviewed Test Results Lab Laboratory Tests Test 09/16/22 18:39 09/17/22 00:33 09/17/22 05:09 Range/Units Troponin I 0.032 H 0.051 H 0.041 H <0.028 NG/ML White Blood Count 4.3 4.3-11.0 10^3/uL Red Blood Count 3.88 L 4.30-5.52 10^6/uL Hemoglobin 9.7 L 13.3-17.7 g/dL Hematocrit 32 L 40-54 % Mean Corpuscular Volume 81 80-99 fL Mean Corpuscular Hemoglobin 25 25-34 pg Mean Corpuscular Hemoglobin Concent 31 L 32-36 g/dL Red Cell Distribution Width 16.5 H 10.0-14.5 % Platelet Count 395 130-400 10^3/uL Mean Platelet Volume 10.7 9.0-12.2 fL Immature Granulocyte % (Auto) 1 % Neutrophils (%) (Auto) 83 H 42-75 % Lymphocytes (%) (Auto) 16 12-44 % Monocytes (%) (Auto) 1 0-12 % Eosinophils (%) (Auto) 0 0-10 % Basophils (%) (Auto) 0 0-10 % Neutrophils # (Auto) 3.5 1.8-7.8 10^3/uL Lymphocytes # (Auto) 0.7 L 1.0-4.0 10^3/uL Monocytes # (Auto) 0.0 0.0-1.0 10^3/uL Eosinophils # (Auto) 0.0 0.0-0.3 10^3/uL Basophils # (Auto) 0.0 0.0-0.1 10^3/uL Immature Granulocyte # (Auto) 0.0 0.0-0.1 10^3/uL Sodium Level 134 L 135-145 MMOL/L Potassium Level 4.0 3.6-5.0 MMOL/L Chloride Level 102 98-107 MMOL/L Carbon Dioxide Level 20 L 21-32 MMOL/L Anion Gap 12 5-14 MMOL/L Blood Urea Nitrogen 22 H 7-18 MG/DL Creatinine 1.01 0.60-1.30 MG/DL Estimat Glomerular Filtration Rate 75 BUN/Creatinine Ratio 22 Glucose Level 159 H 70-105 MG/DL Calcium Level 9.0 8.5-10.1 MG/DL Radiology NAME: RITA COCHRAN Prashanth [facility] REC#: [id number] PT STATUS: REG ER : 1940 PHYSICIAN: LISA KIRK APRN ADMIT DATE: 09/16/22/ER Signed Date of Exam:09/16/22 CHEST 1 VIEW, AP/PA ONLY INDICATION: Dyspnea and chest pain. AP view of the chest is obtained. COMPARISON: None FINDINGS: Surgical findings are seen in the mediastinum with presumed coronary artery stent. Lungs are clear. There is no pneumothorax, consolidation or pleural fluid. Mild degenerative findings are present in the left shoulder. Shoulder is incompletely evaluated on this exam. IMPRESSION: No definite acute abnormalities identified. There is probable degenerative change and mild irregularity in the proximal left humerus. Correlation to possible pain at this site would be of use. Dictated by: Dictated on workstation # [id number] Dict: 09/16/22 1642 Trans: 09/16/22 172 [id number] [id number] Interpreted by: VADIM MAE MD Electronically signed by: VADIM MAE MD 09/16/221727 NAME: RITA COCHRAN [facility] REC#: [id number] PT STATUS: REG ER : 1940 PHYSICIAN: LISA KIRK APRN ADMIT DATE: 09/16/22/ER Signed Date of Exam:09/16/22 CT ANGIO CHEST W (R/O PE) INDICATION: Shortness of breath on exertion, lower extremity swelling. TECHNIQUE: CTA chest obtained with IV contrast bolus and axial slices and MIP reconstructions. Dose-reduction protocol was used. COMPARISON: There is no prior study for comparison. FINDINGS: The pulmonary parenchymal vessels are well opacified with no CT evidence of pulmonary emboli. The thoracic aorta shows no sign of dissection or aneurysm. There is mild aortic plaquing. Great vessel origins are patent and without stenosis. There is no mediastinal or hilar adenopathy. A prominent hiatal hernia is noted. There are no enlarged axillary nodes or chest wall lesions. There is no pleural or pericardial fluid. Patient has had previous sternotomy. Visualized portions of the upper abdomen were unremarkable. Lung windows demonstrated some biapical scarring. There is no consolidation. There is some right basilar scarring. IMPRESSION: No CT evidence of pulmonary emboli or acute aortic pathology. Evidence of previous sternotomy. No pleural fluid. There are some areas of scarring in both apices and in the right lung base, but no ant consolidation. Dictated by: Dictated on workstation # [id number] Dict: 09/16/22 1719 Trans: 09/16/22 1738 [id number] [id number] Interpreted by: DOMENICO BREWER MD Electronically signed by: DOMENICO BREWER MD 09/16/22 1738 Physical Exam-(CHC) Physical Exam Vital Signs VS - Last 72 Hours, by Label 09/16/22 09/16/22 09/16/22 09/16/22 15:27 20:15 20:15 20:16 Temp 36.6 Pulse 75 100 83 Resp 14 20 16 B/P (MAP) 113/66 (82) 135/60 (85) 151/76 Pulse Ox 98 95 98 98 O2 Delivery Room Air Room Air Room Air Room Air 09/16/22 09/16/22 09/16/22 09/16/22 20:42 21:17 21:39 23:24 Temp 36.5 Pulse 75 87 110 Resp 20 B/P (MAP) 123/55 (77) Pulse Ox 98 97 93 O2 Delivery Room Air FiO2 21 09/17/22 09/17/22 09/17/22 09/17/22 01:00 04:28 07:00 07:53 Temp 36.2 36.8 Pulse 100 108 99 99 Resp 18 18 B/P (MAP) 122/64 (83) 129/70 (89) Pulse Ox 95 95 O2 Delivery Room Air Room Air 09/17/22 09/17/22 09/17/22 09/17/22 08:00 10:19 11:42 12:45 Temp 36.6 Pulse 93 104 Resp 18 B/P (MAP) 130/63 (85) Pulse Ox 92 98 O2 Delivery Room Air Room Air Room Air 09/17/22 15:09 Temp 36.9 Pulse 96 Resp 18 B/P (MAP) 126/66 (86) Pulse Ox 96 O2 Delivery Room Air Capillary Refill : Less Than 3 Seconds General Appearance: WD/WN, no apparent distress, thin HEENT: PERRL/EOMI Neck: non-tender, full range of motion, supple Respiratory: chest non-tender, lungs clear, no respiratory distress, no accessory muscle use Cardiovascular: normal peripheral pulses, regular rate, rhythm, no murmur Gastrointestinal: normal bowel sounds, non tender, soft Back: no CVA tenderness, no vertebral tenderness Extremities: non-tender, normal inspection, no calf tenderness, pedal edema (2+ L>R) Neurologic/Psychiatric: loader operator II-XII nml as tested, alert, normal mood/affect, oriented x 3 Skin: normal color, warm/dry Lymphatic: no adenopathy Assessment/Plan Assessment/Plan Admission Status: Observation (1) COPD with acute exacerbation Status: Acute Assessment & Plan: - Oxygen titrated and patient on RA, continue steroids, will get ambulatory oximetry, PT ordered (2) Elevated troponin Status: Acute Assessment & Plan: - Cardiology consulted, appreciate recommendations, stress tomorrow (3) Shortness of breath Status: Acute (4) Normocytic anemia Assessment & Plan: - No signs of acute bleeding, continue to monitor, likely of chronic disease (5) CAD (coronary artery disease) Status: Chronic Qualifiers: Qualified Codes: I25.10 - Atherosclerotic heart disease of [place] coronary artery without angina pectoris (6) HLD (hyperlipidemia) Status: Chronic Assessment & Plan: - continue statin (7) CKD (chronic kidney disease) Status: Chronic Assessment & Plan: - Patient seems to be at baseline Qualifiers: Qualified Codes: 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
[2022-09-17] MEDS: predniSONE 20 MG TAB PO SCH (17:52)
[2022-09-17] MEDS: ENOXAPARIN 40 MG/0.4 ML (LOVENOX) SYR SQ SCH (17:53)
[2022-09-17 20:14] VITALS: BP 152/79
[2022-09-17 23:44] VITALS: BP 130/70
[2022-09-18] VITALS (13 sets, daily range): BP systolic 116–157; BP diastolic 65–98
[2022-09-18 05:43] LABS: BASOPHILS % (AUTO) 0 % (0-10); EOSINOPHILS % (AUTO) 0 % (0-10); HEMATOCRIT 27 % (40-54); LYMPHOCYTES # (AUTO) 1.3 10^3/uL (1.0-4.0); LYMPHOCYTES % (AUTO) 12 % (12-44); MEAN CORPUSCULAR HEMOGLOBIN 24 pg (25-34); MEAN CORPUSCULAR HGB CONC 30 g/dL (32-36); MEAN CORPUSCULAR VOLUME 81 fL (80-99); MEAN PLATELET VOLUME 10.2 fL (9.0-12.2); MONOCYTES # (AUTO) 0.8 10^3/uL (0.0-1.0); MONOCYTES % (AUTO) 7 % (0-12); NEUTROPHILS # (AUTO) 8.5 10^3/uL (1.8-7.8); NEUTROPHILS % (AUTO) 81 % (42-75); PLATELET COUNT 366 10^3/uL (130-400); WHITE BLOOD COUNT 10.6 10^3/uL (4.3-11.0)
[2022-09-18 05:52] LABS: ALBUMIN 3.2 GM/DL (3.2-4.5); BILIRUBIN,TOTAL 0.3 MG/DL (0.1-1.0); CALCIUM 8.4 MG/DL (8.5-10.1); CREATININE SERUM 0.87 MG/DL (0.60-1.30); POTASSIUM 4.3 MMOL/L (3.6-5.0)
[2022-09-18] MEDS: CATHETER FLUSH 10 ML SYR IVP SCH ×3 (06:16→21:59)
[2022-09-18] MEDS: RT-ALBUTEROL/IPRATROPIUM 3 ML (DUONEB) VIAL INH SCH ×2 (07:23→21:42)
[2022-09-18] MEDS: UMECLIDINIUM BROMIDE (INCRUSE ELLIPTA) 7'S IH SCH (07:24)
[2022-09-18] MEDS: RT--FLUTICASONE/SALMETEROL 232-14 (AIRDUO RespiCLICK) IH SCH ×2 (07:24→21:43)
[2022-09-18] MEDS ORDERED: REGADENOSON 0.4 MG/5 ML SYR (LEXISCAN) IV ONE (08:32)
[2022-09-18] MEDS: predniSONE 20 MG TAB PO SCH ×2 (08:45→18:03)
[2022-09-18] MEDS: TAMSULOSIN 0.4 MG (FLOMAX) CAP PO SCH (08:45)
[2022-09-18] MEDS: FINASTERIDE (PROSCAR) 5 MG TAB PO SCH (08:49)
[2022-09-18] MEDS: ASPIRIN 81 MG CHEW (CHILDREN'S ASA) PO SCH (08:49)
[2022-09-18] MEDS: PARoxetine 10 MG (PAXIL) TAB PO SCH (08:49)
[2022-09-18] MEDS ORDERED: PANTOPRAZOLE 40 MG (PROTONIX) TAB PO SCH (09:00)
[2022-09-18] MEDS ORDERED: NON-FORMULARY MEDICATION 1 EA EA (Budesonide/Formoterol Fumarate (Symbicort 160-4.5 Mcg In IH SCH (09:00)
[2022-09-18] MEDS ORDERED: TIOTROPIUM BROMIDE (SPIRIVA) 5'S INHALER IH SCH (09:00)
--- NOTE | 2022-09-18 11:33 | Progress Note - Cardiology ---
Cardiology SOAP Progress Note Subjective: No c/o CP SOB improved Chronic dizziness which is unchanged Objective: I&O/Vital Signs Constitutional: AAO x 3, well-developed, well-nourished Respiratory: No accessory muscle use, No respiratory distress; chest expansion is symmetric, chest is bilaterally symmetric, rhonchi (scattered) Cardiovascular: regular rate-rhythm; No JVD; S1 and S2 Gastrointestional: No tender; soft, round, audible bowel sounds Extremities: other (sling in place to left arm), no lower extremity edema bilateral Neurologic/Psychiatric: grossly intact (moves all extremities; sling to left arm - not manipulated d/t recent fracture) Skin: No rash on exposed areas, No ulcerations on exposed areas Results/Procedures: Labs Laboratory Tests 09/22/22 09:23: Lab Scanned Report Transfusion Reaction Form A/P: Assessment: Progressive LEACH - possibly secondary to acute on chronic exacerbation of COPD - Echocardiogram of 09-17-22 showed mod concentric hypertrophy. 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 in 2011, pt does not know any details - has refused MPI in the past - H/o AK, cor stents (prior to CABG) and CHF, but pt does not know details No evidence of AAA on abd ao screening scan of 04/22/20 Mild to mod bilat carotid art plaque w/o evidence of hemodynamic significance on carotid u/s of 04/22/20 H/o tobacco use, quit in 2011 COPD HLD - statin tx CKD 2-3 Abnormal ECG. ECG of 04/11/20: NSR, prior anteroseptal AK Plan: Progressive dyspnea - possibly secondary to acute on chronic exacerbation of COPD - improved - MPI to eval for cor ischemia - done today Monitor lab Replace electrolytes as indicated JOHN EDGE Sep 18, 2022 11:33
--- NOTE | 2022-09-18 12:06 | Progress Note - Hospitalist ---
ISAAC HAWKINS I 09/18/22 1206: Subjective HPI/CC On Admission Date Seen by Provider: Sep 18, 2022 Time Seen by Provider: 11:00 CHF Subjective/Events-last exam Mr. Bliss is an 81 yr old male with a past medical history of COPD, CAD s/p CABG, BPH and HLD admitted on 09/16 for increasing dyspnea on exertion following a non-syncopal fall resulting in a humoral fracture. Workup in the ED was negative for pulmonary embolism, pneumothorax, pneumonia, or acute aortic abnormalities, although there was some scarring noted in both lung bases. A minimally elevated troponin was determined to be due to demand ischemia. Echo showed 55-60%, and had perfusion imaging. His shoulder fracture was managed through position and medication. Despite his shortness of breath he has not required supplemental oxygen. Objective Exam Vital Signs Vital Signs Date Time Temp Pulse Resp B/P (MAP) Pulse Ox O2 Delivery O2 Flow Rate FiO2 09/18/22 12:45 97 09/18/22 12:05 36.8 18 144/69 (94) 96 Room Air 09/16/22 20:42 21 Capillary Refill : Less Than 3 Seconds General Appearance: No Apparent Distress, WD/WN HEENT: PERRL/EOMI, TMs Normal, Normal ENT Inspection, Pharynx Normal, Moist Mucous Membranes; No Pale Conjunctivae (L), No Pale Conjunctivae (R), No Pharyngeal Erythema, No Photophobia, No Scleral Icterus (L), No Scleral Icterus (R), No TM Abnormal (L), No TM Abnormal (R), No Tonsillar Exudate, No Tonsillar Enlargement, No Other Neck: Full Range of Motion, Normal Inspection, Non Tender, Supple Respiratory: Chest Non Tender, Lungs Clear, Normal Breath Sounds, No Accessory Muscle Use, No Respiratory Distress Cardiovascular: Regular Rate, Rhythm, No Edema, No Gallop, No JVD, No Murmur, Normal Peripheral Pulses Gastrointestinal: Normal Bowel Sounds, No Organomegaly, No Pulsatile Mass, Non Tender, Soft Rectal: Deferred Extremity: Normal Capillary Refill, Normal Inspection, Normal Range of Motion, Non Tender, No Calf Tenderness, No Pedal Edema Neurologic/Psychiatric: Alert, Oriented x3, No Motor/Sensory Deficits, Normal Mood/Affect Results/Procedures Lab Laboratory Tests 09/18/22 05:00 Patient resulted labs reviewed. Assessment/Plan Assessment and Plan Assess & Plan/Chief Complaint Acute exacerbation of COPD - continue to adjust O2 as necessary, wean as tolerated - PT eval for weakness - consider for inpatient rehab - Incentive spirometry - Steroids Elevated troponin - minimally elevated - likely Type 2 AZ secondary to transient hypoxia, - no chest pain - Cardiac stress test: results pending - Cardioloy following Normocytic anemia - Negative GI bleed - Potentially do to chronic disease - Workup outpatient CAD - h/o CABG and cardiac aneurysm repair at [facility] in 2011, pt does not know any details - has refused MPI in the past - H/o AZ, cor stents (prior to CABG) and CHF, but pt does not know details Progressive LEACH Hyperlipidemia - continue statin HLD - statin CKD 2-3 Monitor lab Replace electrolytes as indicated ARCELIA PRASAD DO 09/19/22 0546: Objective Exam General Appearance: No Apparent Distress, WD/WN, Chronically ill Respiratory: Lungs Clear, Normal Breath Sounds Cardiovascular: Regular Rate, Rhythm Assessment/Plan Assessment and Plan Assess & Plan/Chief Complaint Assessment: NSTEMI Hypoxia Worsening anemia Black stools Plan: Stress test O2 Dr. Maurer consult PPI Check iron studies Supervisory-Addendum Brief Verification & Attestation Participated in pt care: history, MDM, physical Personally performed: exam, history, MDM, supervision of care Care discussed with: Medical Student Procedures: n/a Results interpretation: Verified all documentation Verification and Attestation of Medical Student E/M Service A medical student performed and documented this service in my presence. I reviewed and verified all information documented by the medical student and made modifications to such information, when appropriate. I personally performed the physical exam and medical decision making. Arcelia Prasad, Sep 19, 2022,05:45 ISAAC HAWKINS I Sep 18, 2022 12:06 ARCELIA PRASAD DO Sep 19, 2022 05:46
--- NOTE | 2022-09-18 13:05 | Physical Therapy Evaluation ---
PT Evaluation-General Medical Diagnosis Admission Date Sep 16, 2022 at 19:47 Medical Diagnosis: Acute exacerbation of COPD Onset Date: Sep 16, 2022 Therapy Diagnosis Therapy Diagnosis: impaired mobility Precautions Precautions/Isolations: Standard Precautions Referral Physician: Arcelia Chi DO Reason for Referral: Evaluation/Treatment Medical History Additional Medical History COPD CAD s/p CABG BPH HLD Current History Patient broke his arm or shoulder about a week ago, he is wearing a sling on left arm, weight bearing status is not documented, assume NWB Reviewed History: Yes Social History Home: Single Level Current Living Status: Spouse Entry Into Home: Stairs With Railing PT Steps Into Home: 2 Prior Prior Level of Function SCALE: Activities may be completed with or without assistive devices. 5-Simlirpzte-ofzdxkk completes the activity by him/herself with no assistance from a helper. 5-Set-up or Clean-up Assistance-helper sets up or cleans up; patient completes activity. [place] assists only prior to or following the activity. 4-Supervision or Touching Assistance-helper provides verbal cues and/or touching/steadying and/or contact guard assistance as patient completes activity. Assistance may be provided throughout the activity or intermittently. 3-Partial/Moderate Assistance-helper does LESS THAN HALF the effort. [place] lifts, holds or supports trunk or limbs, but provides less than half the effort. 2-Substantial/Maximal Assistance-helper does MORE THAN HALF the effort. [place] lifts or holds trunk or limbs and provides more than half the effort. 4-Nzohvfyqr-porizi does ALL the effort. Patient does none of the effort to complete the activity. Or, the assistance of 2 or more helpers is required for the patient to complete the activity. If activity was not attempted, code reason: 7-Patient Refused. 9-Not Applicable-not attempted and the patient did not perform the activity before the current illness, exacerbation or injury. 10-Not Attempted due to Environmental Limitations-(lack of equipment, weather restraints, etc.). 88-Not Attempted due to Medical Conditions or Safety Concerns. Bed Mobility: 6 Transfers (B,C,W/C): 6 Gait: 6 Stairs: 6 Indoor Mobility (Ambulation): Independent Stairs: Independent PT Evaluation-Current Subjective Patient sitting EOB pre tx, agrees to PT, has no pain at rest. Pt/Family Goals "to go home" Objective Patient Orientation: Person, Place, Situation left arm sling ROM/Strength ROM Lower Extremities WNL Strength Lower Extremities grossly 5/5 BLE except hip flexion 4+/5 bilaterally Sensory Vision: Wears Glasses Hearing: Functional Sensation Right Lower Extremit: Intact Sensation Left Lower Extremity: Intact Transfers Sit to Stand (QC): 4 Chair/Tfy-bn-Mwlmf Xfer(QC): 4 SBA Gait Walk 10 feet (QC): 4 Walk 50 ft with 2 Turns(QC): 4 Distance: 50' Gait Assistive Device: FWW Comments/Gait Description Patient SBA with ambulation, just pushed a rolling walker with one hand Balance Sitting Static: Normal Sitting Dynamic: Normal Standing Static: Good Standing Dynamic: Good Assessment/Needs Patient sitting EOB post tx, finishing his lunch. Patient has impaired mobility, bring cane next time for him to use. Rehab Potential: Fair PT Prison Goals Authorization Manager Goals PT Prison Goals Time Frame: Sep 25, 2022 Roll Left & Right (QC): 6 Sit to Lying (QC): 6 Lying-Sitting on Side/Bed(QC): 6 Sit to Stand (QC): 6 Chair/Ssv-kh-Mqhfz Xfer(QC): 6 Walk 10 feet (QC): 6 Walk 50ft with 2 Turns (QC): 6 PT Plan Problem List Problem List: Activity Tolerance, Functional Strength, Safety, Balance, Gait, Transfer, ROM Treatment/Plan Treatment Plan: Continue Plan of Care Treatment Plan: Education, Functional Activity Karina, Functional Strength, Gait, Safety, Therapeutic Exercise, Transfers Treatment Duration: Sep 25, 2022 Frequency: 6 times per week Estimated Hrs Per Day: .25 hour per day Patient and/or Family Agrees t: Yes Safety Risks/Education Patient Education: Gait Training, Transfer Techniques, Correct Positioning, Safety Issues Teaching Recipient: Patient Teaching Methods: Demonstration, Discussion Response to Teaching: Reinforcement Needed Discharge Recommendations Plan Patient will perform bed mobility and transfer training, balance and endurance training, functional strengthening, stair training, gait training, and education, to improve functional mobility and independence at home. Therapy Discharge Recommendati: Home & Family, Post Acute PT Time Time In: 1245 Time Out: 1300 DATE: Sep 18, 2022 Total Billed Treatment Time: 15 Total Billed Treatment 1 visit JEANETTE 15' LIU GRAY PT Sep 18, 2022 13:05
--- NOTE | 2022-09-18 14:20 | Occ Therapy Progress Note ---
Therapy Progress Note OT orders received and chart reviewed. OT visited with pt who indicates he is at his baseline with ADLS. He has some difficulty with UE dressing due to recent shoulder fx, but his has been able to assist him. Pt declines concerns with his ability to complete ADLs at this time, and feels like he is ready to discharge. Pt states he was able to toilet and eat independently today. Pt declines further OT services at this time. D/C from OT. 1, visit RON OLIVEIRA OT Sep 18, 2022 14:20
[2022-09-18] MEDS ORDERED: FUROSEMIDE 40 MG/4 ML INJ (LASIX) IVP NR (17:00)
[2022-09-18] MEDS ORDERED: NS IV 500 ML 500 ML IV SCH ×2 (17:00)
--- NOTE | 2022-09-18 17:03 | Progress Note - Cardiology ---
Cardiology SOAP Progress Note Subjective: Shortness of breath better but not resolved No cp or palp or syncope Chronic, mild, leg swelling No n/v/d Objective: I&O/Vital Signs 09/18/22 09/18/22 09/18/22 09/18/22 07:00 07:24 07:26 08:00 Temp 37.0 Pulse 99 99 Resp 18 B/P (MAP) 146/69 (94) Pulse Ox 95 93 98 O2 Delivery Room Air Room Air Room Air 09/18/22 09/18/22 09/18/22 09/18/22 08:00 09:05 12:00 12:05 Temp 37.0 36.8 36.8 Pulse 99 110 93 93 Resp 18 18 18 B/P (MAP) 146/69 (94) 150/68 (95) 144/69 (94) 144/69 (94) Pulse Ox 93 96 96 O2 Delivery Room Air Room Air Room Air 09/18/22 09/18/22 12:45 16:00 Temp 36.8 Pulse 97 94 Resp 18 B/P (MAP) 137/66 (89) Pulse Ox 96 O2 Delivery Room Air 09/18/22 00:00 Intake Total 1466 ml Output Total 850 ml Balance 616 ml Constitutional: AAO x 3, well-developed, well-nourished Respiratory: No accessory muscle use, No respiratory distress; chest expansion is symmetric, chest is bilaterally symmetric, rhonchi (scattered) Cardiovascular: regular rate-rhythm; No JVD; S1 and S2 Gastrointestional: No tender; soft, round, audible bowel sounds Extremities: other (sling in place to left arm), no lower extremity edema bilateral Neurologic/Psychiatric: grossly intact (moves all extremities; sling to left arm - not manipulated d/t recent fracture) Skin: No rash on exposed areas, No ulcerations on exposed areas Results/Procedures: Labs Laboratory Tests 09/18/22 05:00: White Blood Count 10.6, Red Blood Count 3.29L, Hemoglobin 8.0L, Hematocrit 27L, Mean Corpuscular Volume 81, Mean Corpuscular Hemoglobin 24L, Mean Corpuscular Hemoglobin Concent 30L, Red Cell Distribution Width 16.7H, Platelet Count 366, Mean Platelet Volume 10.2, Immature Granulocyte % (Auto) 0, Neutrophils (%) (Auto) 81H, Lymphocytes (%) (Auto) 12, Monocytes (%) (Auto) 7, Eosinophils (%) (Auto) 0, Basophils (%) (Auto) 0, Neutrophils # (Auto) 8.5H, Lymphocytes # (A uto) 1.3, Monocytes # (Auto) 0.8, Eosinophils # (Auto) 0.0, Basophils # (Auto) 0.0, Immature Granulocyte # (Auto) 0.0, Sodium Level 134L, Potassium Level 4.3, Chloride Level 103, Carbon Dioxide Level 23, Anion Gap 8, Blood Urea Nitrogen 34H, Creatinine 0.87, Estimat Glomerular Filtration Rate 87, BUN/Creatinine Ratio 39, Glucose Level 105, Calcium Level 8.4L, Corrected Calcium 9.0, Total Bilirubin 0.3, Aspartate Amino Transf (AST/SGOT) 21, Alanine Aminotransferase (ALT/SGPT) 15, Alkaline Phosphatase 99, Total Protein 6.0L, Albumin 3.2 Laboratory Tests 09/17/22 05:09 09/18/22 05:00 A/P: Assessment: Shortness of breath probably due to anemia of undetermined etiology and ac diastolic CHF - Echocardiogram of 09-17-22 showed mod concentric hypertrophy. 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 ECG of 04/11/20: NSR, prior anteroseptal DC Plan: * For CAD: ASA, statin, bb * For diastolic CHF: diuretic (plus K) * Anemia appears to have progressed. Blood transfusion. We recommend a w/u * I discussed his CV issues in detail with him and his daugther * I called Dr Chi and discussed the case with her DIANNA HWANG MD FACP FACC CCDS Sep 18, 2022 17:03
[2022-09-18] MEDS: ENOXAPARIN 40 MG/0.4 ML (LOVENOX) SYR SQ SCH (18:03)
--- NOTE | 2022-09-18 21:55 | STRESS TEST ---
DATE OF SERVICE: 09/18/2022 RESTING AND POST REGADENOSON TECHNETIUM-99M TETROFOSMIN SPECT CT IMAGING ORDERING PHYSICIAN: Keely Lee APRN PRIMARY PHYSICIAN: Dr. Castro. CLINICAL DIAGNOSIS: Shortness of breath. DESCRIPTION OF PROCEDURE: Baseline images were carried out after injection of 10.19 mCi technetium technetium-99m Tetrofosmin. This was followed by 0.4 mg regadenoson and 28.8 mCi of technetium-99m tetrofosmin for stress imaging. The electrocardiogram showed sinus rhythm. There is evidence of old anteroapical or anteroseptal myocardial infarction. The electrocardiogram did not change significantly with regadenoson infusion. Review of images at rest and following stress indicate an apical perfusion defect that is fixed. There is apical akinesis. Left ventricular ejection fraction is calculated to be 69%. CONCLUSIONS: 1. Apical infarction without significant ischemia. 2. Apical akinesis. 3. Left ventricular ejection fraction is calculated to be 69%. Job ID: [id number] DocumentID: [id number] Dictated Date: 09/18/2022 16:12:11 Bias Binding Folder Date: 09/18/2022 21:53:00 Dictated By: DIANNA HWANG MD; MA; FACP; FACC;
[2022-09-18] MEDS: ACETAMINOPHEN 325 MG TABLET PO PRN (21:58)
[2022-09-18] MEDS: PANTOPRAZOLE 40 MG (PROTONIX) TAB PO SCH (21:58)
--- NOTE | 2022-09-18 23:53 | Consultation - Surgery ---
History of Present Illness History of Present Illness Patient Consulted On(jeanie/time) 09/18/22 23:50 Time Seen by Provider: 22:55 History of Present Illness Surgery asked to consult regarding Anemia and Melena. HPI per ED: 81-year-old male presents with daughter, sent from the [facility] clinic in [place] with reports of abnormal EKG, shortness of breath, and bilateral lower extremity edema. Patient states that he scheduled an appointment at the clinic because of his bilateral lower leg edema and shortness of air. Daughter states that on he fell and broke his shoulder and has been sitting around not walking. States the swelling in his lower extremities has increased since the fall, but states they have become more swollen and painful over the last week. States that today swelling is actually improved. Complains of shortness of air with walking short distance, denies shortness of air while sitting. Denies chest pain, denies fever/chills, reports headache but states this is normal for him denies any changes in his headaches. Denies abdominal pain, nausea/vomiting. He has a history of COPD, CHF, open heart surgery, multiple stents. He currently takes carvedilol, tamsulosin, potassium, paroxetine, finasteride, Lasix 40 mg, aspirin 81 mg, Culturelle, cetirizine, pravastatin, Spiriva, Symbicort, albuterol inhaler. Pt states this is the first time he has ever seen melena; "it was black". He was told "3-4 years ago" he needed to start Iron pills but he never did and doesn't remember anyone specifically saying his blood was low. When I spoke to him everight he also relayed hx of colonoscopy appx 5 yrs ago or so and found "folded up colon, they took out part of it". He thinks it was due to diverticulitis and sounds like maybe there was stricture in the area from inflammatory process; he said no cancer. He thinks he had an EGD "a couple times back, during one of the previous colonoscopies. I've had a bunch". He doesn't remember them finding anything on EGD. He had some abdominal pain earlier in the day, but it is gone now. Endoscopies were done by Dr. Jaimes. Allergies and Home Medications Allergies Coded Allergies: No Known Drug Allergies (Unverified , 07/09/20) Patient Home Medication List Home Medication List Reviewed: Yes Acetaminophen (Tylenol Extra Strength) 500 Mg Tablet, 1,000 MG PO Q8H PRN for PAIN-MILD (1-4), (Reported) Entered as Reported by: DEE DEE LEE on 09/17/221602 Last Action: Reviewed Albuterol Sulfate (Ventolin Hfa) 1 Puff Puff, 2 PUFF INH Q4H PRN for SHORTNESS OF BREATH, (Reported) Entered as Reported by: DEE DEE LEE on 09/17/221602 Last Action: Reviewed Aspirin (Aspirin EC) 81 Mg Tablet.dr, 81 MG PO DAILY, (Reported) Entered as Reported by: DEE DEE LEE on 09/17/221602 Last Action: Reviewed Budesonide/Formoterol Fumarate (Symbicort 160-4.5 Mcg Inhaler) 160 Mcg-4.5 Mcg/Actuation Hfa.aer.ad, 2 PUFF IH DAILY, (Reported) Entered as Reported by: DEE DEE LEE on 09/17/221602 Last Action: Converted Carvedilol (Carvedilol) 3.125 Mg Tablet, 3.125 MG PO BID, (Reported) Entered as Reported by: DEE DEE LEE on 09/17/221602 Last Action: Continued Cetirizine HCl (Cetirizine HCl) 10 Mg Tablet, 10 MG PO 1700, (Reported) Entered as Reported by: DEE DEE LEE on 09/17/221602 Last Action: Reviewed Finasteride (Finasteride) 5 Mg Tablet, 5 MG PO DAILY, (Reported) Entered as Reported by: DEE DEE LEE on 09/17/221602 Last Action: Continued Furosemide (Furosemide) 40 Mg Tablet, 40 MG PO DAILY, (Reported) Entered as Reported by: DEE DEE LEE on 09/17/221602 Last Action: Reviewed Hydrocodone/Acetaminophen (Hydrocodone-Acetamin 5-325 mg) 5 Mg-325 Mg Tablet, 1 EA PO Q6H PRN for PAIN-MODERATE (5-7), (Reported) Entered as Reported by: DEE DEE LEE on 09/17/221603 Last Action: Continued Lactobacillus Rhamnosus GG (Culturelle) 10 Billion Cell Capsule, 1 EACH PO DAILY, (Reported) Entered as Reported by: DEE DEE LEE on 09/17/221602 Last Action: Reviewed Magnesium Hydroxide (Milk of Magnesia) 400 Mg/5 Ml Oral.susp, 30 ML PO BID PRN for CONSTIPATION-7TH LINE, (Reported) Entered as Reported by: DEE DEE LEE on 09/17/221602 Last Action: Reviewed Pantoprazole Sodium (Pantoprazole Sodium) 40 Mg Tablet.dr, 40 MG PO DAILY, (Reported) Entered as Reported by: DEE DEE LEE on 09/17/221602 Last Action: Continued Paroxetine HCl (Paroxetine HCl) 10 Mg Tablet, 10 MG PO DAILY, (Reported) Entered as Reported by: DEE DEE LEE on 09/17/221602 Last Action: Continued Potassium Chloride (Klor-Con 10) 10 Meq Tablet.er, 10 MEQ PO DAILY, (Reported) Entered as Reported by: DEE DEE LEE on 09/17/221602 Last Action: Reviewed Pravastatin Sodium (Pravastatin Sodium) 40 Mg Tablet, 40 MG PO 1700, (Reported) Entered as Reported by: DEE DEE LEE on 09/17/221602 Last Action: Reviewed Tamsulosin HCl (Flomax) 0.4 Mg Cap, 0.8 MG PO DAILY, (Reported) Entered as Reported by: DEE DEE LEE on 09/17/221602 Last Action: Continued Tiotropium [place] (Spiriva) 18 Mcg Aerp, 1 PUFF IH DAILY, (Reported) Entered as Reported by: DEE DEE LEE on 09/17/221602 Last Action: Continued Past Kdbaeri-Ddgube-Nhajuh Hx Patient Social History Smoking Status: Former Smoker Alcohol Use?: No Have you traveled recently?: No Immunizations Up To Date Date of Influenza Vaccine: May 30, 2022 Surgeries History of Surgeries: Yes Surgeries: CABG, Coronary Stent Respiratory History of Respiratory Disorde: Yes (CHF) Respiratory Disorders: COPD Cardiovascular History of Cardiac Disorders: Yes Cardiac Disorders: Chronic Edema/Swelling, Coronary Artery Disease, High Cholesterol, Hypertension Neurological History of Neurological Disord: Yes Neurological Disorders: Headaches /Migraines Genitourinary History of Genitourinary Disor: Yes Genitourinary Disorders: Renal Failure Gastrointestinal History of Gastrointestinal Di: Yes Gastrointestinal Disorders: Chronic Constipation, Diverticulosis Musculoskeletal History of Musculoskeletal Dis: Yes Musculoskeletal Disorders: Arthritis, Fractures Endocrine History of Endocrine Disorders: No HEENT History of HEENT Disorders: Yes Loss of Vision: Bilateral Hearing Impairment: Hard of Hearing Cancer History of Cancer: No Psychosocial History of Psychiatric Problem: No Family Medical History Significant Family History: No Pertinent Family Hx (denies any DM in his family) Review of Systems-General Constitutional: No chills, No dizziness, No fever EENTM: No blurred vision, No mouth swelling, No epistaxis, No throat swelling Respiratory: cough, dyspnea on exertion; No hemoptysis; short of breath Cardiovascular: chest pain; No palpitations Gastrointestinal: abdominal pain, melena; No nausea, No vomiting Genitourinary: No dysuria, No frequency, No hematuria Musculoskeletal: back pain, joint pain, joint swelling, muscle stiffness Skin: No change in color, No change in hair/nails Psychiatric/Neurological: Denies Anxiety, Denies Depressed; Headache; Denies Seizure, Denies Tremors Physical Exam-General Problems Physical Exam Vital Signs Vital Signs - First Documented 09/16/22 09/16/22 09/16/22 15:27 20:15 20:42 Temp 36.6 Pulse 75 Resp 14 B/P (MAP) 113/66 (82) Pulse Ox 98 O2 Delivery Room Air FiO2 21 Capillary Refill : Less Than 3 Seconds General Appearance: WD/WN, no apparent distress Eyes: Bilateral Eye PERRL, Bilateral Eye EOMI HEENT: pharynx normal; No scleral icterus (R), No scleral icterus (L) Neck: non-tender, supple Respiratory: lungs clear, normal breath sounds, no respiratory distress, no accessory muscle use Cardiovascular: regular rate, rhythm, no murmur Gastrointestinal: non tender, soft, no organomegaly Back: no CVA tenderness, no vertebral tenderness Extremities: no pedal edema, no calf tenderness, other (Left arm in sling) Neurologic/Psychiatric: alert, normal mood/affect, oriented x 3 Skin: normal color, warm/dry Lymphatic: no adenopathy (neck, axilla or groin) Data Review Labs Laboratory Tests 09/18/22 05:00: White Blood Count 10.6, Red Blood Count 3.29L, Hemoglobin 8.0L, Hematocrit 27L, Mean Corpuscular Volume 81, Mean Corpuscular Hemoglobin 24L, Mean Corpuscular Hemoglobin Concent 30L, Red Cell Distribution Width 16.7H, Platelet Count 366, Mean Platelet Volume 10.2, Immature Granulocyte % (Auto) 0, Neutrophils (%) (Auto) 81H, Lymphocytes (%) (Auto) 12, Monocytes (%) (Auto) 7, Eosinophils (%) (Auto) 0, Basophils (%) (Auto) 0, Neutrophils # (Auto) 8.5H, Lymphocytes # (Auto) 1.3, Monocytes # (Auto) 0.8, Eosinophils # (Auto) 0.0, Basophils # (Auto) 0.0, Immature Granulocyte # (Auto) 0.0, Sodium Level 134L, Potassium Level 4.3, Chloride Level 103, Carbon Dioxide Level 23, Anion Gap 8, Blood Urea Nitrogen 34H, Creatinine 0.87, Estimat Glomerular Filtration Rate 87, BUN/Creatinine Ratio 39, Glucose Level 105, Calcium Level 8.4L, Corrected Calcium 9.0, Total Bilirubin 0.3, Aspartate Amino Transf (AST/SGOT) 21, Alanine Aminotransferase (ALT/SGPT) 15, Alkaline Phosphatase 99, Total Protein 6.0L, Albumin 3.2 Radiology Date of Exam:09/16/22 CT ANGIO CHEST W (R/O PE) INDICATION: Shortness of breath on exertion, lower extremity swelling. TECHNIQUE: CTA chest obtained with IV contrast bolus and axial slices and MIP reconstructions. Dose-reduction protocol was used. COMPARISON: There is no prior study for comparison. FINDINGS: The pulmonary parenchymal vessels are well opacified with no CT evidence of pulmonary emboli. The thoracic aorta shows no sign of dissection or aneurysm. There is mild aortic plaquing. Great vessel origins are patent and without stenosis. There is no mediastinal or hilar adenopathy. A prominent hiatal hernia is noted. There are no enlarged axillary nodes or chest wall lesions. There is no pleural or pericardial fluid. Patient has had previous sternotomy. Visualized portions of the upper abdomen were unremarkable. Lung windows demonstrated some biapical scarring. There is no consolidation. There is some right basilar scarring. IMPRESSION: No CT evidence of pulmonary emboli or acute aortic pathology. Evidence of previous sternotomy. No pleural fluid. There are some areas of scarring in both apices and in the right lung base, but no ant consolidation. Dictated by: Dictated on workstation # [id number] Dict: 09/16/22 1719 Trans: 09/16/22 1738 [id number] Interpreted by: DOMENICO BREWER MD Electronically signed by: DOMENICO BREWER MD 09/16/22 1738 Assessment/Plan Assessment/Plan Assessment/Plan Anemia Melena CAD, COPD, HLD Recent Fx of Left shoulder I reviewed pt's old labs and went over his imaging, I also discussed his case with primary physician. At this point I think the best course of action is to just monitor labs and treat symptomatically. He may benefit from EGD and colonoscopy, although the anemia may just be of chronic disease. Would lean toward endoscopies as an outpt; although could be done inpt if needed. I explained all of this to him and he is in agreement. His main concern was that he didn't think he was ready to go home tomorrow. I told him I didn't think that would happen. Would hold Lovenox and have pt ambulate. LUCIUS APODACA DO Sep 18, 2022 23:53
[2022-09-19 04:14] VITALS: BP 134/62
[2022-09-19 05:40] LABS: BASOPHILS % (AUTO) 0 % (0-10); EOSINOPHILS % (AUTO) 0 % (0-10); HEMATOCRIT 29 % (40-54); HEMOGLOBIN 9.1 g/dL (13.3-17.7); LYMPHOCYTES # (AUTO) 1.7 10^3/uL (1.0-4.0); LYMPHOCYTES % (AUTO) 21 % (12-44); MEAN CORPUSCULAR HEMOGLOBIN 26 pg (25-34); MEAN CORPUSCULAR HGB CONC 32 g/dL (32-36); MEAN CORPUSCULAR VOLUME 82 fL (80-99); MONOCYTES # (AUTO) 0.6 10^3/uL (0.0-1.0); MONOCYTES % (AUTO) 7 % (0-12); NEUTROPHILS # (AUTO) 5.7 10^3/uL (1.8-7.8); NEUTROPHILS % (AUTO) 71 % (42-75); PLATELET COUNT 308 10^3/uL (130-400); WHITE BLOOD COUNT 8.1 10^3/uL (4.3-11.0)
[2022-09-19 06:05] LABS: ALBUMIN 3.2 GM/DL (3.2-4.5); BILIRUBIN,TOTAL 0.6 MG/DL (0.1-1.0); CALCIUM 8.5 MG/DL (8.5-10.1); CREATININE SERUM 0.82 MG/DL (0.60-1.30); POTASSIUM 3.9 MMOL/L (3.6-5.0)
[2022-09-19] MEDS: CATHETER FLUSH 10 ML SYR IVP SCH ×2 (06:11→09:28)
--- NOTE | 2022-09-19 06:45 | Progress Note - Hospitalist ---
Subjective HPI/CC On Admission Date Seen by Provider: Sep 19, 2022 Time Seen by Provider: 11:00 CHF Subjective/Events-last exam Patient doing a lot better Hemoglobin stable Appreciate Dr. Maurer consult he needs scopes as an outpatient Appreciate cardiology Refused therapy Review of Systems General: Fatigue, Malaise Musculoskeletal: arm pain Objective Exam Vital Signs Vital Signs Date Time Temp Pulse Resp B/P (MAP) Pulse Ox O2 Delivery O2 Flow Rate FiO2 09/19/22 11:14 36.4 81 18 134/88 (103) 94 Room Air 09/16/22 20:42 21 Capillary Refill : Less Than 3 Seconds General Appearance: No Apparent Distress, WD/WN, Chronically ill Respiratory: Lungs Clear, Normal Breath Sounds Cardiovascular: Regular Rate, Rhythm Neurologic/Psychiatric: Alert, Oriented x3, No Motor/Sensory Deficits, Normal Mood/Affect Results/Procedures Lab Laboratory Tests 09/19/22 05:29 Patient resulted labs reviewed. Assessment/Plan Assessment and Plan Assess & Plan/Chief Complaint Assessment: NSTEMI Hypoxia Left humerus fracture Worsening anemia status post 1 unit of blood Black stools Plan: Stress test reviewed O2 Dr. Maurer consult appreciated Dr. Rodríguez appreciated PPI Check iron studies BETTIE PRASAD DO Sep 19, 2022 06:45
[2022-09-19] MEDS ORDERED: KCL 10 MEQ TAB (MICRO K) PO SCH (07:00)
[2022-09-19 07:06] VITALS: BP 145/70
[2022-09-19] MEDS: ACETAMINOPHEN 325 MG TABLET PO PRN ×2 (07:58→14:00)
[2022-09-19] MEDS: predniSONE 20 MG TAB PO SCH (07:58)
--- NOTE | 2022-09-19 08:45 | Progress Note - Surgery ---
BERNARDO TUTTLE Chung 09/19/22 0845: Subjective Date Seen by a Provider: Sep 19, 2022 Time Seen by a Provider: 07:30 Subjective/Events-last exam Mr. Bliss is an 81 year old male being followed by general surgery for anemia and melena. Patient says he is feeling okay this morning. He received 1 unit of blood yesterday around 1830 and said that perked him up a bit. His last bowel movement was the day before yesterday which was melanotic. He has not had a bowel movement since then. He did complain of an upset stomach and some nausea. Denied vomiting. Did have some weakness and dizziness but that improved after the transfusion. Talked to patient about possbility of outpatient scopes either here or with his previous provider. Patient seemed to lean towards doing them here due to closer proximity. Review of Systems General: No Chills; Fatigue HEENT: No Head Aches, No Visual Changes Pulmonary: No Dyspnea, No Cough Cardiovascular: No: Chest Pain, Palpitations Gastrointestinal: Nausea; No: Vomiting, Abdominal Pain Neurological: No: Weakness, Confusion Objective Exam Vital Signs Date Time Temp Pulse Resp B/P (MAP) Pulse Ox O2 Delivery O2 Flow Rate FiO2 09/19/22 07:06 36.8 83 18 145/70 (95) 93 Room Air 09/19/22 07:00 81 09/19/22 04:14 36.7 90 16 134/62 (86) 94 Room Air 09/19/22 01:00 90 09/18/22 23:34 36.3 99 16 126/65 (85) 95 Room Air 09/18/22 22:42 36.9 09/18/22 22:05 36.9 94 18 157/71 95 Room Air 09/18/22 21:43 95 Room Air 09/18/22 20:15 95 Room Air 09/18/22 20:00 37.0 95 18 135/74 (94) 98 Room Air 09/18/22 19:50 36.0 102 22 138/98 (111) 97 Room Air 09/18/22 19:01 37.0 95 18 135/74 98 Room Air 09/18/22 19:00 94 09/18/22 18:30 36.6 102 18 137/66 95 Room Air 09/18/22 16:00 36.8 94 18 137/66 (89) 96 Room Air 09/18/22 12:45 97 09/18/22 12:05 36.8 93 18 144/69 (94) 96 Room Air 09/18/22 12:00 36.8 93 18 144/69 (94) 96 Room Air 09/18/22 09:05 110 150/68 (95) I & O 09/19/22 07:00 Intake Total 1050 ml Output Total 650 ml Balance 400 ml Capillary Refill : Less Than 3 Seconds General Appearance: No Apparent Distress, WD/WN, Chronically ill HEENT: PERRL/EOMI, Pale Conjunctivae (L), Pale Conjunctivae (R) Neck: Normal Inspection, Non Tender Respiratory: Chest Non Tender, Lungs Clear, No Accessory Muscle Use, No Respiratory Distress, Wheezing (Expiratory wheezing) Cardiovascular: Regular Rate, Rhythm, No Murmur, Normal Peripheral Pulses, Other (Very minor pedal/LE edema) Peripheral Pulses: 2+ Radial Pulses (R), 2+ Radial Pulses (L) Gastrointestinal: non tender, soft Extremity: Non Tender, No Calf Tenderness, Pedal Edema (Minor) Neurologic/Psychiatric: Alert, Oriented x3, No Motor/Sensory Deficits, Normal Mood/Affect Skin: Normal Color, Warm/Dry Results Lab Laboratory Tests 09/19/22 05:29: White Blood Count 8.1, Red Blood Count 3.53L, Hemoglobin 9.1L, Hematocrit 29L, Mean Corpuscular Volume 82, Mean Corpuscular Hemoglobin 26, Mean Corpuscular Hemoglobin Concent 32, Red Cell Distribution Width 16.0H, Platelet Count 308, Mean Platelet Volume 10.0, Immature Granulocyte % (Auto) 0, Neutrophils (%) (Auto) 71, Lymphocytes (%) (Auto) 21, Monocytes (%) (Auto) 7, Eosinophils (%) (Auto) 0, Basophils (%) (Auto) 0, Neutrophils # (Auto) 5.7, Lymphocytes # (Auto) 1.7, Monocytes # (Auto) 0.6, Eosinophils # (Auto) 0.0, Basophils # (Auto) 0.0, Immature Granulocyte # (Auto) 0.0, Sodium Level 132L, Potassium Level 3.9, Chloride Level 105, Carbon Dioxide Level 20L, Anion Gap 7, Blood Urea Nitrogen 30H, Creatinine 0.82, Estimat Glomerular Filtration Rate 88, BUN/Creatinine Ratio 37, Glucose Level 103, Calcium Level 8.5, Corrected Calcium 9.1, Total Bilirubin 0.6, Aspartate Amino Transf (AST/SGOT) 24, Alanine Aminotransferase (ALT/SGPT) 18, Alkaline Phosphatase 92, Total Protein 6.0L, Albumin 3.2, Triglycerides Level 108, Cholesterol Level 154, LDL Cholesterol Direct 78, VLDL Cholesterol 22, HDL Cholesterol 56 Assessment/Plan Assessment/Plan Assessment/Plan Anemia Melena CAD, COPD, HLD Recent Fx of Left shoulder Continue to watch Hgb No signs of continued bleeding but patient has yet to have another bowel movement Possible outpatient vs. inpatient EGD/colonoscopy. Likely outpatient, no emergent need for either at this time Hold anticoagulation, encourage ambulation Transfuse if Hgb < 8 s/p 1 unit SEP 21 BUSTER APODACA DO 09/19/22 1159: Subjective Time Seen by a Provider: 09:23 Subjective/Events-last exam Pt seen and examined, states he feels a little stronger today. He has not had another BM since last night. He did get transfuse per Cardiology yesterday. Review of Systems General: No Chills; Fatigue HEENT: No Head Aches, No Visual Changes Pulmonary: No Dyspnea, No Cough Cardiovascular: No: Chest Pain, Palpitations Gastrointestinal: Nausea; No: Vomiting, Abdominal Pain Objective Exam General Appearance: No Apparent Distress, WD/WN HEENT: PERRL/EOMI, Pale Conjunctivae (L), Pale Conjunctivae (R) Respiratory: Chest Non Tender, Lungs Clear, No Accessory Muscle Use, No Respiratory Distress, Wheezing (Expiratory wheezing) Cardiovascular: Regular Rate, Rhythm, No Murmur, Other (Very minor pedal/LE edema) Gastrointestinal: non tender, soft, no organomegaly Extremity: No Calf Tenderness, Pedal Edema (Minor), Other (Left arm in sling) Neurologic/Psychiatric: Alert, Oriented x3 Assessment/Plan Assessment/Plan Assessment/Plan Anemia Melena CAD, COPD, HLD Recent Fx of Left shoulder Continue to watch Hgb No signs of continued bleeding but patient has yet to have another bowel movement Possible outpatient vs. inpatient EGD/colonoscopy. Likely outpatient, no emergent need for either at this time Hold anticoagulation, encourage ambulation Transfuse if Hgb < 8 s/p 1 unit SEP 21 Supervisory-Addendum Brief Verification & Attestation Participated in pt care: history, MDM, physical Personally performed: exam, history, MDM, supervision of care Care discussed with: Medical Student Procedures: n/a Verification and Attestation of Medical Student E/M Service A medical student performed and documented this service. I then reviewed and verified all information documented by the medical student and made modifications to such information, when appropriate. I personally performed a physical exam, medical decision making and then discussed any differences between the notes and made revisions as necessary to create one note. Buster Apodaca , 09/19/22 , 11:59 BERNARDO TUTTLE Sep 19, 2022 08:45 BUSTER APODACA DO Sep 19, 2022 11:59
[2022-09-19] MEDS ORDERED: FUROSEMIDE 40 MG (LASIX) TAB PO SCH (09:00)
[2022-09-19] MEDS: PANTOPRAZOLE 40 MG (PROTONIX) TAB PO SCH (09:27)
[2022-09-19] MEDS: FINASTERIDE (PROSCAR) 5 MG TAB PO SCH (09:27)
[2022-09-19] MEDS: ASPIRIN 81 MG CHEW (CHILDREN'S ASA) PO SCH (09:27)
[2022-09-19] MEDS: PARoxetine 10 MG (PAXIL) TAB PO SCH (09:27)
[2022-09-19] MEDS: TAMSULOSIN 0.4 MG (FLOMAX) CAP PO SCH (09:27)
[2022-09-19] MEDS: RT--FLUTICASONE/SALMETEROL 232-14 (AIRDUO RespiCLICK) IH SCH (10:06)
[2022-09-19] MEDS: UMECLIDINIUM BROMIDE (INCRUSE ELLIPTA) 7'S IH SCH (10:06)
[2022-09-19] MEDS: RT-ALBUTEROL/IPRATROPIUM 3 ML (DUONEB) VIAL INH SCH (10:07)
[2022-09-19 11:14] VITALS: BP 134/88
--- NOTE | 2022-09-19 13:05 | Progress Note - Cardiology ---
Cardiology SOAP Progress Note Subjective: Feels well today and wants to go home No cp or palp or syncope No n/v/d No shortness of breath at rest Gen weakness and malaise are much improved Objective: I&O/Vital Signs 09/19/22 09/19/22 09/19/22 09/19/22 04:14 07:00 07:06 08:00 Temp 36.7 36.8 Pulse 90 81 83 Resp 16 18 B/P (MAP) 134/62 (86) 145/70 (95) Pulse Ox 94 93 93 O2 Delivery Room Air Room Air Room Air 09/19/22 09/19/22 09/19/22 10:04 11:14 12:56 Temp 36.4 Pulse 81 93 Resp 18 B/P (MAP) 134/88 (103) Pulse Ox 96 94 O2 Delivery Room Air Room Air 09/19/22 00:00 Intake Total 750 ml Output Total 300 ml Balance 450 ml Constitutional: AAO x 3, well-developed, well-nourished Respiratory: No accessory muscle use, No respiratory distress; chest expansion is symmetric, chest is bilaterally symmetric, rhonchi (scattered) Cardiovascular: regular rate-rhythm; No JVD; S1 and S2 Gastrointestional: No tender; soft, round, audible bowel sounds Extremities: other (sling in place to left arm), no lower extremity edema bilateral Neurologic/Psychiatric: other (moves all limb, L arm in sling after recent L arm injury) Skin: No rash on exposed areas, No ulcerations on exposed areas Results/Procedures: Labs Laboratory Tests 09/19/22 05:29: White Blood Count 8.1, Red Blood Count 3.53L, Hemoglobin 9.1L, Hematocrit 29L, Mean Corpuscular Volume 82, Mean Corpuscular Hemoglobin 26, Mean Corpuscular Hemoglobin Concent 32, Red Cell Distribution Width 16.0H, Platelet Count 308, Mean Platelet Volume 10.0, Immature Granulocyte % (Auto) 0, Neutrophils (%) (Auto) 71, Lymphocytes (%) (Auto) 21, Monocytes (%) (Auto) 7, Eosinophils (%) (Auto) 0, Basophils (%) (Auto) 0, Neutrophils # (Auto) 5.7, Lymphocytes # (Auto) 1.7, Monocytes # (Auto) 0.6, Eosinophils # (Auto) 0.0, Basophils # (Auto) 0.0, Immature Granulocyte # (Auto) 0.0, Sodium Level 132L, Potassium Level 3.9, Chloride Level 105, Carbon Dioxide Level 20L, Anion Gap 7, Blood Urea Nitrogen 30H, Creatinine 0.82, Estimat Glomerular Filtration Rate 88, BUN/Creatinine Ratio 37, Glucose Level 103, Calcium Level 8.5, Corrected Calcium 9.1, Total Bilirubin 0.6, Aspartate Amino Transf (AST/SGOT) 24, Alanine Aminotransferase (ALT/SGPT) 18, Alkaline Phosphatase 92, Total Protein 6.0L, Albumin 3.2, Triglycerides Level 108, Cholesterol Level 154, LDL Cholesterol Direct 78, VLDL Cholesterol 22, HDL Cholesterol 56 Laboratory Tests 09/18/22 05:00 09/19/22 05:29 A/P: Assessment: Shortness of breath probably due to anemia of undetermined etiology and ac diastolic CHF - Echocardiogram of 09-17-22 showed mod concentric hypertrophy. 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 ECG of 04/11/20: NSR, prior anteroseptal TX Plan: * For CAD: ASA, statin, bb * For diastolic CHF: diuretic (plus K) * Anemia issue discussed with Dr Chi yesterday who has given blood and obtained a surg consult and plans outpt f/u * I discussed his CV issues in detail with him and his daugther and have advised outpt card f/u DIANNA HWANG MD FACP FAC CCDS Sep 19, 2022 13:05
--- NOTE | 2022-09-19 13:10 | Physical Therapy Progress Note ---
Therapy Progress Note The patient states that he does not feel well right now and that he does not want to do any therapy at the moment. Will jovitaempt. ANA LUISA DAVILA PT Sep 19, 2022 13:10
[2022-09-19] MEDS ORDERED: PRED10TA22 PO (13:16)
[2022-09-19] MEDS ORDERED: PANT40TA52 PO (13:16)
[2022-09-19] MEDS ORDERED: ATOR40TA PO (13:16)
--- NOTE | 2022-09-19 13:19 | D/C HH Face to Face Order ---
D/C HH Face to Face Orders Reconcile Patient Problems Problems Reviewed?: Yes Instructions for Patient HH Patient Instructions/FollowUp: PCP 1 week Physician to follow Patient: chc Discharge Diet for Home: Cardiac Diet Patient Problems: left humerus fx Patient Data-Allergies,Ht & Wt Patient Allergies: Coded Allergies: No Known Drug Allergies (Unverified , 07/09/20) Home Health Need/Face to Face Date of Face to Face: Sep 19, 2022 Clinical Findings: Generalized weakness and fatigue, Muscle weakness I have seen Pt [id number]: Yes Discharged To: Home Diagnosis/Conditions: left humerus fx Patient is Homebound due to: CognItive deficits, Pain w/ambulation Homebound Status Due to the above stated illness, injury or surgical procedure (medical condition or diagnosis) and associated clinical findings, the patient is homebound because of his/her inability to leave home except with aid of a supportive device and/or person AND leaving the home requires a considerable and taxing effort or is medically contraindicated. Pt req the following assistanc: [facility] Nursing Orders Home Health Services Order: Nursing Services, Principal Quality Engineer-Evaluate & Treat, Physical Therapy-Evaluate & Treat Home Health Infusion Therapy Line Start Date: Sep 16, 2022 Certify Stmt I certify that this patient is under my care and that I, a nurse practitioner or a physician; a behavioral health assistant working with me, had a face to face encounter that - meets the physician face to face encounter requirements with this patient as dated. BETTIE PRASAD DO Sep 19, 2022 13:19
--- NOTE | 2022-09-19 13:20 | Discharge Summary ---
Discharge Summary Hospital Course Was the Problem List Reviewed?: Yes Problems/Dx: (1) Shortness of breath Status: Acute (2) CAD (coronary artery disease) Status: Chronic Qualifiers: Qualified Codes: I25.10 - Atherosclerotic heart disease of [place] coronary artery without angina pectoris (3) HLD (hyperlipidemia) Status: Chronic (4) CKD (chronic kidney disease) Status: Chronic Qualifiers: Qualified Codes: N18.2 - Chronic kidney disease, stage 2 (mild) (5) Normocytic anemia (6) Elevated troponin Status: Acute (7) COPD with acute exacerbation Status: Acute (8) CHF (congestive heart failure) Status: Acute Hospital Course Date of Admission: Sep 16, 2022 at 19:47 Admission Diagnosis : Family Physician/Provider: No,Local Physician Date of Discharge: 09/19/22 Discharge Diagnosis: [ ] Hospital Course: Mr. Bliss is an 81 yr old male with a past medical history of COPD, CAD s/p CABG, BPH and HLD admitted on 09/16 for increasing dyspnea on exertion following a non-syncopal fall resulting in a humoral fracture. Workup in the ED was negative for pulmonary embolism, pneumothorax, pneumonia, or acute aortic abnormalities, although there was some scarring noted in both lung bases. A minimally elevated troponin was determined to be due to demand ischemia. Echo showed 55-60%, and had perfusion imaging. His shoulder fracture was managed through position and medication. Despite his shortness of breath he has not required supplemental oxygen. Labs and Pending Lab Test: Laboratory Tests 09/19/22 05:29: White Blood Count 8.1, Red Blood Count 3.53L, Hemoglobin 9.1L, Hematocrit 29L, Mean Corpuscular Volume 82, Mean Corpuscular Hemoglobin 26, Mean Corpuscular Hemoglobin Concent 32, Red Cell Distribution Width 16.0H, Platelet Count 308, Mean Platelet Volume 10.0, Immature Granulocyte % (Auto) 0, Neutrophils (%) (Auto) 71, Lymphocytes (%) (Auto) 21, Monocytes (%) (Auto) 7, Eosinophils (%) (Auto) 0, Basophils (%) (Auto) 0, Neutrophils # (Auto) 5.7, Lymphocytes # (Auto) 1.7, Monocytes # (Auto) 0.6, Eosinophils # (Auto) 0.0, Basophils # (Auto) 0.0, Immature Granulocyte # (Auto) 0.0, Sodium Level 132L, Potassium Level 3.9, Chloride Level 105, Carbon Dioxide Level 20L, Anion Gap 7, Blood Urea Nitrogen 30H, Creatinine 0.82, Estimat Glomerular Filtration Rate 88, BUN/Creatinine Ratio 37, Glucose Level 103, Calcium Level 8.5, Corrected Calcium 9.1, Total Bilirubin 0.6, Aspartate Amino Transf (AST/SGOT) 24, Alanine Aminotransferase (ALT/SGPT) 18, Alkaline Phosphatase 92, Total Protein 6.0L, Albumin 3.2, Triglycerides Level 108, Cholesterol Level 154, LDL Cholesterol Direct 78, VLDL Cholesterol 22, HDL Cholesterol 56 Home Meds Active Prednisone 10 Mg Tab.ds.pk 20 Mg PO DAILY Pantoprazole Sodium 40 Mg Tablet.dr 40 Mg PO BID Lipitor (Atorvastatin Calcium) 40 Mg Tablet 40 Mg PO HS Reported Hydrocodone-Acetamin 5-325 mg (Hydrocodone/Acetaminophen) 5 Mg-325 Mg Tablet 1 Ea PO Q6H PRN Tylenol Extra Strength (Acetaminophen) 500 Mg Tablet 1,000 Mg PO Q8H PRN Ventolin Hfa (Albuterol Sulfate) 1 Puff Puff 2 Puff INH Q4H PRN Symbicort 160-4.5 Mcg Inhaler (Budesonide/Formoterol Fumarate) 160 Mcg-4.5 Mcg/Actuation Hfa.aer.ad 2 Puff IH DAILY Spiriva (Tiotropium [place]) 18 Mcg Aerp 1 Puff IH DAILY Milk of Magnesia (Magnesium Hydroxide) 400 Mg/5 Ml Oral.susp 30 Ml PO BID PRN Pravastatin Sodium 40 Mg Tablet 40 Mg PO 1700 Cetirizine HCl 10 Mg Tablet 10 Mg PO 1700 Culturelle (Lactobacillus Rhamnosus GG) 10 Billion Cell Capsule 1 Each PO DAILY Aspirin EC (Aspirin) 81 Mg Tablet.dr 81 Mg PO DAILY Furosemide 40 Mg Tablet 40 Mg PO DAILY Finasteride 5 Mg Tablet 5 Mg PO DAILY Pantoprazole Sodium 40 Mg Tablet.dr 40 Mg PO DAILY Paroxetine HCl 10 Mg Tablet 10 Mg PO DAILY Klor-Con 10 (Potassium Chloride) 10 Meq Tablet.er 10 Meq PO DAILY Flomax (Tamsulosin HCl) 0.4 Mg Cap 0.8 Mg PO DAILY TAKES 2 (0.4MG) CAPS Carvedilol 3.125 Mg Tablet 3.125 Mg PO BID Assessment/Pt Instructions PCP 1 week Discharge Planning: <30 minutes discharge planning Discharge Instructions Discharge Diet: No Restrictions Discharge Physical Examination Vital Signs Vital Signs Date Time Temp Pulse Resp B/P (MAP) Pulse Ox O2 Delivery O2 Flow Rate FiO2 09/19/22 12:56 93 09/19/22 11:14 36.4 18 134/88 (103) 94 Room Air 09/16/22 20:42 21 General Appearance: No Apparent Distress, WD/WN, Chronically ill Allergies: Coded Allergies: No Known Drug Allergies (Unverified , 07/09/20) Discharge Summary Date of Admission Sep 16, 2022 at 19:47 Date of Discharge Discharge Date: Sep 19, 2022 Discharge Diagnosis Assessment: NSTEMI Hypoxia Left humerus fracture Worsening anemia status post 1 unit of blood Black stools Plan: Stress test reviewed O2 Dr. Maurer consult appreciated Dr. Rodríguez appreciated PPI Check iron studies BETTIE PRASAD DO Sep 19, 2022 13:20
[2022-09-19 14:15] VITALS: BP 134/88
== END 2022-09-19 13:12 | disposition home health service (06) ==
LOC: EDUNIT# 15:22 → ER 15:23 → 4TH 19:47 → UNDOADMOB 19:47 → 4TH 20:15 → UNDODISOB 09-19 13:12
PROVIDERS: ADMIT Family Medicine; ATTEND Internal Medicine
DX: J44.1 Chronic obstructive pulmonary disease with (acute) exacerbation (principal); I25.10 Atherosclerotic heart disease of native coronary artery without angina pectoris; E78.5 Hyperlipidemia, unspecified; D64.9 Anemia, unspecified; R77.8 Other specified abnormalities of plasma proteins; I50.9 Heart failure, unspecified; I21.4 Non-ST elevation (NSTEMI) myocardial infarction; I24.8 Other forms of acute ischemic heart disease; S42.302G Unspecified fracture of shaft of humerus, left arm, subsequent encounter for fracture with delayed healing; W19.XXXD Unspecified fall, subsequent encounter; N18.30 Chronic kidney disease, stage 3 unspecified; Z87.891 Personal history of nicotine dependence
CPT/HCPCS: 36430; 71045; 71275; 78452; 80048; 80053 ×3; 80061; 82607; 82728; 83540; 83550; 83735; 83874; 83880; 84484 ×2; 85025 ×4; 85379; 85610; 85730; 86850; 86900; 86901; 86920; 93005; 93017; 93041; 94640 ×8; 94760 ×3; 96372 ×2; 96375; 96376 ×2; 97162; 99284; A9502; C8929; G0378; P9016; 36415; 93306; 96374

== ENCOUNTER 2022-10-14 06:04 | Outpatient (CLI) | payer MEDICARE ==
[~2022-10-14] VITALS: Ht 182.9 cm; Wt 82.4 kg
[~2022-10-14 06:04] MED LIST changes: +ACET-2267 PO; +ACHD5005 PO; +ASPI-1238 PO; +ATOR40TA PO; +BUDE10.2 IH; +CARV3.122 PO; +CETI10TA17 PO; +FINA5TAB6 PO; +FURO40TA4 PO; +LACT1CAP39 PO; +MAGN400O7 PO; +PANT40TA52 PO; +PARO10TA3 PO; +POTA-160 PO; +PRAV40TA2 PO; +PRED10TA22 PO; +RT-ALBUINH INH; -RT-ALBUTEROL SULF 2.5 MG/3 ML PRE-MIX VIAL INH ONE; +TIOT18CA2 IH; +TMSL.4C PO
[2022-10-14] MEDS ORDERED: PARO20TA5 PO (13:29)
== END 2022-10-14 13:33 | disposition home or self-care (01) ==
LOC: PREOP 06:04
PROVIDERS: ATTEND Surgery
DX: Z01.818 Encounter for other preprocedural examination (principal)

== ENCOUNTER 2022-10-26 09:04 | Day surgery (SDC) | payer MEDICARE ==
[~2022-10-26] VITALS: Ht 183 cm; Wt 82.4 kg
[~2022-10-26 09:04] MED LIST changes: +PARO20TA5 PO
[2022-10-26] MEDS ORDERED: LACTATED RINGERS 1,000 ML IV STA (09:06)
[2022-10-26] MEDS ORDERED: HURRICAINE EXT TUBE (BENZOCAINE) ONE (09:10)
[2022-10-26] MEDS ORDERED: LACTATED RINGERS 1,000 ML IV ONE (09:10)
[2022-10-26] MEDS ORDERED: HURRICAINE EXT TUBE (BENZOCAINE) XX PRN (09:15)
[2022-10-26 09:25] VITALS: BP 154/103
--- NOTE | 2022-10-26 09:34 | Progress Note-Pre Operative ---
Pre-Operative Progress Note Date of Available H&P: Oct 08, 2022 Date H&P Reviewed: Oct 26, 2022 Time H&P Reviewed: 09:32 History & Physical: H&P Reviewed, Patient Examed, No changes noted Pre-Operative Diagnosis: Anemia, Altered bowel fxn LUCIUS APODACA DO Oct 26, 2022 09:34
[2022-10-26] MEDS ORDERED: PROPOFOL INJECTION 50 ML IV ONE (09:37)
[2022-10-26] MEDS ORDERED: PHENYLEPHRINE 100 MCG/ML 10 ML (ANESTHESIA) SYR ONE (09:57)
[2022-10-26 10:05] VITALS: BP 73/44
[2022-10-26 10:10] VITALS: BP 72/45
[2022-10-26 10:15] VITALS: BP 100/52
--- NOTE | 2022-10-26 10:31 | Progress Note-Post Operative ---
Post-Operative Progess Note Surgeon (s)/Grounds Restoration Specialist (s) Surgeon LUCIUS APODACA DO Grounds Restoration Specialist: Poncho Tejada, MSIII Pre-Operative Diagnosis Anemia, Altered bowel fxn Post-Operative Diagnosis Gastritis Large Hiatal hernia AVM Int hemorrhoids Procedure & Operative Findings Date of Procedure 10/26/22 Procedure Performed/Findings EGD with bx Colonoscopy PROCEDURE NOTE: After informed consent was obtained, the patient was brought to the endoscopy suite, placed in bed in left lateral decubitus position. He was administered IV sedation by the MANAGER ANDROID who then monitored vitals the entire time, heart rate, blood pressure and pulse ox and the scope was inserted down the mouth through the esophagus into the stomach. Pushed into the stomach and past the antrum into the duodenum. Duodenum looked good. Pulled back and did a biopsy of the antrum, then retroflexed the scope. I saw a very large hiatal hernia (stomach above the diaphragm, took a picture of this and then pulled the scope into the GE junction, took another picture of the hiatal hernia and then did a biopsy of the GE junction. Pushed the scope back into the stomach, suctioned all the air out of the stomach. At this point pulled the scope up the esophagus and out the mouth. Switched camera, switched gloves, went down below and started the colonoscopy. Immediately upon entering saw the previous anastomosis and took a picture. Pushed all the way to about 140 cm and pushed into the cecum, took a picture of appendiceal orifice and noted the ileocecal valve. Then slowly withdrew the scope insufflating to look circumferentially at the [place] starting in the cecum, up the ascending colon to the hepatic flexure, then down the transverse colon, splenic flexure, into the descending colon down and then into the rectal vault and retroflexed the scope. Took picture of the internal hemorrhoids. The patient tolerated the procedure and he recovered in the endoscopy suite. Recommended for repeat colonoscopy in 10 years Anesthesia Type IV sedation by MANAGER ANDROID Estimated Blood Loss Estimated blood loss (mL): scant Specimens/Packing Specimens Removed antral bx GE jxn bx LUCIUS APODACA DO Oct 26, 2022 10:31
--- NOTE | 2022-10-26 10:37 | Endoscopy Discharge Instruct ---
Endo Procedure/Findings Findings 1.: Gastritis 2.: Hiatal Hernia 3.: Internal Hemorrhoids 4.: Other Findings (AVM) Discharge Instructions - Activity: You might feel a little sleepy until tomorrow. This is due to the medicine you received to relax you. Until tomorrow, you should: NOT drive a car, operate machinery or power tools. NOT drink any alcoholic beverages. NOT make any important decisions or sign importortant papers. Do not return to work until tomorrow, unless otherwise instructed. Resume previous activities tomorrow. Diet: Start by taking liquids. If you tolerate liquids, advance to solid food. 1.: EGD in 3 years 2.: Colonscopy in 10 years Notify Physician - If you experience excessive bleeding, unusual abdominal pain, fever, or chest pain, contact your doctor immediately. LUCIUS APODACA DO Oct 26, 2022 10:37
[2022-10-26 10:44] VITALS: BP 118/60
--- NOTE | 2022-10-26 12:14 | Anesthesia-General Post-Op ---
MAC Patient Condition Mental Status/LOC: Same as Preop Cardiovascular: Satisfactory Nausea/Vomiting: Absent Respiratory: Satisfactory Pain: Controlled Complications: Absent Post Op Complications Complications None Follow Up Care/Instructions Patient Instructions None needed. Anesthesiology Discharge Order Discharge Order Patient is doing well, no complaints, stable vital signs, no apparent adverse anesthesia problems. No complications reported per nursing. AKIRA ARANDA CRNA Oct 26, 2022 12:14
== END 2022-10-26 11:12 | disposition home or self-care (01) ==
LOC: ENDO 09:04
PROVIDERS: ATTEND Surgery
DX: D64.9 Anemia, unspecified (principal); K20.90 Esophagitis, unspecified without bleeding; K62.89 Other specified diseases of anus and rectum; K31.89 Other diseases of stomach and duodenum; K44.9 Diaphragmatic hernia without obstruction or gangrene; K64.8 Other hemorrhoids; R19.4 Change in bowel habit; Z98.0 Intestinal bypass and anastomosis status; Z87.891 Personal history of nicotine dependence